=== PATIENT | male | born 1955 | race Caucasian/White ===

== ENCOUNTER 2016-08-27 14:59 | Emergency (ER) | payer OTHER ==
[2016-08-27] MEDS ORDERED: GELATIN SPONGE,ABSORB (SMALL) 1 EACH SPONGE TOPICAL STA (15:07)
[2016-08-27] MEDS ORDERED: ceFAZolin 1,000 MG VIAL IM STA (15:10)
[2016-08-27 15:11] VITALS: RESP 18; TEMP 97.8
--- NOTE | 2016-08-27 15:31 | XR ---
EXAMINATION TYPE: XR hand complete RT DATE OF EXAM: 08/27/2016 3:25 PM COMPARISON: NONE HISTORY: Pain laceration distal fifth digit TECHNIQUE: 3 views right hand FINDINGS: There is amputation of the soft tissues of the distal fifth digit. There is amputation of t he tuft of the distal phalanx. IMPRESSION: 1. Amputation of the distal tuft fifth digit and soft tissue distal fifth digit and
[2016-08-27] MEDS ORDERED: GELATIN SPONGE,ABSORB (LARGE) 1 EACH SPONGE TOPICAL ONE (15:45)
--- NOTE | 2016-08-27 15:54 | ED ---
General Adult HPI - General Stated complaint: left hand lac Time Seen by Provider: 08/27/16 15:01 Source: patient, RN notes reviewed, old records reviewed Mode of arrival: ambulatory Limitations: no limitations - History of Present Illness Initial comments: Patient is a 61 year old male with chief complaint of left fifth finger laceration after getting it caught between a kyle knife tool. Patient reports that the distal pad of his finger and part of the nail came off. PAtient is right handed. Patient reports he had a similiar injury over his right hand. Patient states that he has full range of motion over his finger. Denies any other lacerations. - Related Data Home Medications Medication Instructions Recorded Confirmed Meloxicam 15 mg PO DAILY 12/16/13 12/16/13 metFORMIN HCL [Glucophage] 500 mg PO BID 12/16/13 12/16/13 Previous Rx's Medication Instructions Recorded Cephalexin [Keflex] 500 mg PO Q8HR #30 cap 12/16/13 Hydrocodone/Acetaminophen [[place] 1 each PO Q4HR PRN #20 tab 12/16/13 5-325] Cephalexin [Keflex] 500 mg PO Q6HR 7 Days 08/27/16 HYDROcodone/APAP 10-325MG [[place] 1 tab PO Q6H PRN #20 tab 08/27/16 10-325] Allergies Allergy/AdvReac Type Severity Reaction Status Date / Time No Known Allergies Allergy Verified 08/27/16 15:11 Review of Systems ROS Statement: Those systems with pertinent positive or pertinent negative responses have been documented in the HPI. ROS Other: All systems not noted in ROS Statement are negative. Past Medical History Past Medical History: No Reported History History of Any Multi-Drug Resistant Organisms: None Reported Past Surgical History: Hernia Repair, Orthopedic Surgery Additional Past Surgical History / Comment(s): RIGHT FOOT SURGERY Past Psychological History: No Psychological Hx Reported Smoking Status: Former smoker Past Alcohol Use History: None Reported Past Drug Use History: None Reported General Exam - General Exam Comments Initial Comments: beryl 61 year old male, no distress. Limitations: no limitations General appearance: alert, in no apparent distress Head exam: Present: atraumatic, normocephalic, normal inspection Eye exam: Present: normal appearance, PERRL, EOMI. Absent: scleral icterus, conjunctival injection, periorbital swelling ENT exam: Present: normal exam, mucous membranes moist Neck exam: Present: normal inspection. Absent: tenderness, meningismus, lymphadenopathy Respiratory exam: Present: normal lung sounds bilaterally. Absent: respiratory distress, wheezes, rales, rhonchi, stridor Cardiovascular Exam: Present: regular rate, normal rhythm, normal heart sounds. Absent: systolic murmur, diastolic murmur, rubs, gallop, clicks GI/Abdominal exam: Present: soft, normal bowel sounds. Absent: distended, tenderness, guarding, rebound, rigid Extremities exam: Present: normal inspection, full ROM, normal capillary refill , other (amputated distal fifth finger pad. Extending into half of the nail. ). Absent: tenderness, pedal edema, joint swelling, calf tenderness Back exam: Present: normal inspection Neurological exam: Present: alert, oriented X3, CN II-XII intact Psychiatric exam: Present: normal affect, normal mood Course Vital Signs 08/27/16 08/27/16 15:00 16:06 Temperature 97.8 F Pulse Rate 88 79 Respiratory 18 18 Rate Blood Pressure 200/86 176/77 O2 Sat by Pulse 96 97 Oximetry Medical Decision Making - Medical Decision Making 61 year old male with distal lleft fifth finger amputation involving nail. Patient updated on tetanus and given Kefzol IM. Patient shows open distal tuft fracture. Patient hand was soaked in soapy water and wound cleaned. Patient given 2 pieces of gel foam over distal tip of finger and was wrapped with finger tube gauze. Patient bleeding controlled at this time. Patient given referral to orthopedic hand surgeon instructed to call at once. Discussed taking antibiotics and not to remove dressing until seen by orthopedic. Patient agrees with treatment plan and will comply. - Radiology Data Radiology results: report reviewed Tuft fracture of distal 5th finger and evidence of soft tissue missing. Disposition Clinical Impression: Traumatic amputation of tip of finger of right hand, Open fracture of tuft of distal phalanx of finger Disposition: HOME SELF-CARE Condition: Good Instructions: Finger Amputation (ED) Additional Instructions: Follow-up as soon as possible with Dr. Kevin. Remain in the gauze until seen by the physician. Take antibiotics as directed. Return to the emergency department if any alarming signs or symptoms occur. Prescriptions: Cephalexin [Keflex] 500 mg PO Q6HR 7 Days HYDROcodone/APAP 10-325MG [[place] 10-325] 1 tab PO Q6H PRN #20 tab PRN Reason: Pain Referrals: Philippe Connell DO [Primary Care Provider] - 1-2 days Kirill Kevin DO [Doctor of Osteopathic Medicine] - 1-2 days Time of Disposition: 15:51
[2016-08-27 16:07] VITALS: BP 176/77; PULSE 79
== END 2016-08-27 16:07 | disposition home or self-care (01) ==
LOC: EC 14:59
DX: S68.117A Complete traumatic metacarpophalangeal amputation of left little finger, initial encounter (principal); Z79.1 Long term (current) use of non-steroidal anti-inflammatories (NSAID); Z79.84 Long term (current) use of oral hypoglycemic drugs; Z87.891 Personal history of nicotine dependence; W23.0XXA Caught, crushed, jammed, or pinched between moving objects, initial encounter; Y92.009 Unspecified place in unspecified non-institutional (private) residence as the place of occurrence of the external cause
CPT/HCPCS: 99283 ×2; 96372 ×2; 73130; J0690

== ENCOUNTER → 2016-08-31 | Outpatient (CLI) | payer OTHER | LOC: LABWHC1 10:56 | PROVIDERS: ATTEND Orthopaedic Surgery Hand Surgery | DX: Z47.89 Encounter for other orthopedic aftercare (principal); Z89.029 Acquired absence of unspecified finger(s) | CPT/HCPCS: 36415; 93005 ==

== ENCOUNTER → 2017-11-19 | Outpatient (CLI) | payer OTHER ==
--- NOTE | 2017-11-19 15:50 | CT ---
EXAMINATION TYPE: CT chest wo con DATE OF EXAM: 11/19/2017 COMPARISON: HISTORY: Patient complains of chest pain and difficulty breathing. CT DLP: 466.8 mGycm. Automated Exposure Control for Dose Reduction was Utilized. TECHNIQUE: CT scan of the thorax is performed without IV contrast. FINDINGS: There is some atelectatic change in the right middle lobe. There is an 8.3 mm bulla the in the posterior basal segment of the right lower lobe. There is a somewhat oblong, 4.4 mm nodule in the left lingula, best seen on image 30. The lungs otherwise appear clear. There is no significant axillary, internal mammary, mediastinal or hilar adenopathy. There is no pleu ral or pericardial fluid. The heart is not enlarged. There is some coronary artery calcification. Visualized portions of the upper abdomen are unremarkable. There is minimal hypertrophic spondylosis within the dorsal spine. IMPRESSION: 1. 4.4 MM NODULE IN THE LEFT LINGULA. LUNG RADS 2. FOLLOW-UP IN 12 MONTHS TIME IS SUGGESTED. 2. SOLITARY BULLA IN THE RIGHT LOWER LOBE. 3. MILD DEGENERATIVE CHANGES WITHIN THE SPINE.
== END | disposition home or self-care (01) ==
LOC: RADCTMAIN 15:14
PROVIDERS: ATTEND Internal Medicine Critical Care Medicine
DX: J43.0 Unilateral pulmonary emphysema [MacLeod's syndrome] (principal); R91.1 Solitary pulmonary nodule
CPT/HCPCS: 71250

== ENCOUNTER 2017-12-02 10:28 | Emergency (ER) | payer OTHER ==
--- NOTE | 2017-12-02 12:03 | ED ---
General Adult HPI - General Chief complaint: Skin/Abscess/Foreign Body Stated complaint: Right Finger Abcess Time Seen by Provider: 12/02/17 10:45 Source: patient, RN notes reviewed, old records reviewed Mode of arrival: ambulatory Limitations: no limitations - History of Present Illness Initial comments: This is a 63-year-old male the ER for evaluation. They presents for evaluation regards to right fingers left finger abscess. Patient states he has been placed on antibiotics. No improvement pain actually symptoms are worsening swelling is worsening. No known injury. No diabetes. - Related Data Home Medications Medication Instructions Recorded Confirmed Meloxicam 15 mg PO DAILY 12/16/13 12/02/17 metFORMIN HCL [Glucophage] 500 mg PO BID 12/16/13 12/02/17 Albuterol Inhaler [Ventolin Hfa 2 puff INHALATION RT-Q6H PRN 12/02/17 12/02/17 Inhaler] Albuterol Nebulized [Ventolin 2.5 mg INHALATION RT-Q6H 12/02/17 12/02/17 Nebulized] Atorvastatin [Lipitor] 10 mg PO HS 12/02/17 12/02/17 Budesonide [Pulmicort] 0.5 mg INHALATION RT-BID 12/02/17 12/02/17 Budesonide-Formot 160-4.5 Mcg 2 puff INHALATION RT-BID 12/02/17 12/02/17 [Symbicort 160-4.5 Mcg Inhaler] Fluticasone Propionate [Flonase 1 spray EA NOSTRIL DAILY 12/02/17 12/02/17 Allergy Relief] Formoterol Fumarate [Perforomist] 20 mcg INHALATION RT-BID 12/02/17 12/02/17 Sulfamethox-Tmp 800-160Mg [Bactrim 1 tab PO Q12HR 12/02/17 12/02/17 DS 800-160 mg] Tiotropium [place] [Spiriva] 1 cap INHALATION RT-DAILY 12/02/17 12/02/17 Previous Rx's Medication Instructions Recorded Sulfamethox-Tmp 800-160Mg [Bactrim 1 tab PO Q12HR #20 tab 12/02/17 DS 800-160 mg] Allergies Allergy/AdvReac Type Severity Reaction Status Date / Time No Known Allergies Allergy Verified 12/02/17 11:04 Review of Systems ROS Statement: Those systems with pertinent positive or pertinent negative responses have been documented in the HPI. ROS Other: All systems not noted in ROS Statement are negative. Past Medical History Past Medical History: Diabetes Mellitus, Hypertension History of Any Multi-Drug Resistant Organisms: None Reported Past Surgical History: Hernia Repair, Orthopedic Surgery Additional Past Surgical History / Comment(s): RIGHT FOOT SURGERY Past Psychological History: No Psychological Hx Reported Smoking Status: Former smoker Past Alcohol Use History: None Reported Past Drug Use History: None Reported General Exam - General Exam Comments Initial Comments: Abscess to right finger Limitations: no limitations General appearance: alert, in no apparent distress Head exam: Present: atraumatic, normocephalic, normal inspection Eye exam: Present: normal appearance, PERRL, EOMI. Absent: scleral icterus, conjunctival injection, periorbital swelling ENT exam: Present: normal exam, mucous membranes moist Neck exam: Present: normal inspection. Absent: tenderness, meningismus, lymphadenopathy Respiratory exam: Present: normal lung sounds bilaterally. Absent: respiratory distress, wheezes, rales, rhonchi, stridor Cardiovascular Exam: Present: regular rate, normal rhythm, normal heart sounds. Absent: systolic murmur, diastolic murmur, rubs, gallop, clicks GI/Abdominal exam: Present: soft, normal bowel sounds. Absent: distended, tenderness, guarding, rebound, rigid Extremities exam: Present: normal inspection, full ROM, normal capillary refill. Absent: tenderness, pedal edema, joint swelling, calf tenderness Back exam: Present: normal inspection Neurological exam: Present: alert, oriented X3, CN II-XII intact Psychiatric exam: Present: normal affect, normal mood Skin exam: Present: warm, dry, intact, normal color. Absent: rash Course Vital Signs 12/02/17 12/02/17 10:34 12:15 Temperature 98.2 F 98.7 F Pulse Rate 83 77 Respiratory 18 16 Rate Blood Pressure 182/3 140/75 O2 Sat by Pulse 94 L 95 Oximetry Procedures - Incision & Drainage Consent Obtained: verbal consent Time Out Performed?: Yes Site: hand Anesthetic Used: lidocaine 1% I&D Cleaning Method: Betadine Sterile Field Used?: Yes Scalpel Used: #11 Needle Aspiration Performed?: No Irrigation Performed?: No I&D Drainage Obtained: Pus, Blood Culture Obtained?: No Patient Tolerated Procedure: well Medical Decision Making - Medical Decision Making 62 male the ER for evaluation of abscesses abscess on his right finger. Abscess is incised here in the ER mild purulent drainage was obtained and patient can be discharged home Disposition Clinical Impression: Abscess of finger Disposition: HOME SELF-CARE Condition: Good Instructions: Abscess (ED) Prescriptions: Sulfamethox-Tmp 800-160Mg [Bactrim DS 800-160 mg] 1 tab PO Q12HR #20 tab Is patient prescribed a controlled substance at d/c from ED?: No Referrals: Philippe Connell DO [Primary Care Provider] - 1-2 days
[2017-12-02 12:15] VITALS: BP 140/75; PULSE 77; RESP 16; TEMP 98.7
== END 2017-12-02 13:04 | disposition home or self-care (01) ==
LOC: EC 10:28
DX: L02.511 Cutaneous abscess of right hand (principal); E11.9 Type 2 diabetes mellitus without complications; Z79.84 Long term (current) use of oral hypoglycemic drugs; Z79.51 Long term (current) use of inhaled steroids; Z79.899 Other long term (current) drug therapy; Z87.891 Personal history of nicotine dependence
CPT/HCPCS: 10060; 99283

== ENCOUNTER → 2017-12-02 | Outpatient (CLI) | payer OTHER ==
--- NOTE | 2017-12-02 10:57 | EST ---
EXERCISE STRESS DATE OF SERVICE: 12/02/2017 AGE: 62 SEX: Male HT: 65 WT: 197 PROTOCOL: MICHELLE STAGE: II DURATION OF EXERCISE: 6 minutes HEART RATE REST: 69 BLOOD PRESSURE REST: 145/68 MAXIMUM HEART RATE ACHIEVED: 123 MAXIMUM BLOOD PRESSURE: 239/95 85% MPHR: 134 100% MPHR: 198 METS: 7 INDICATIONS: Chest pain. CLINICAL INFORMATION: Baseline EKG shows sinus rhythm, normal axis, normal intervals. Patient exercised on Michelle protocol for a total of 6 minutes achieving 7 METs, 78% of predicted maximal heart rate without chest pain. The patient had uncontrolled hypertension due to which the test was stopped. There were T-wave inversions in the inferolateral leads at peak exercise. CONCLUSIONS: 1. Average exercise tolerance. 2. Inconclusive EKG part of the stress test due to inability to attain target heart rate. 3. Uncontrolled hypertension. MMODL / IJN: [id number] /
--- NOTE | 2017-12-02 11:06 | ECHOF ---
Referral Reason: MEASUREMENTS -------- HEIGHT: 165.1 cm WEIGHT: 89.4 kg BP: RVIDd: 3.4 cm (< 3.3) IVSd: 1.4 cm (0.6 - 1.1) LVIDd: 4.2 cm (3.9 - 5.3) LVPWd: 1.6 cm (0.6 - 1.1) IVSs: 2.2 cm LVIDs: 2.4 cm LVPWs: 1.8 cm Ao Diam: 3.3 cm (2.0 - 3.7) AV Cusp: 2.1 cm (1.5 - 2.6) LA Diam: 3.7 cm (2.7 - 3.8) MV EXCURSION: 13.189 mm (> 18.000) MV EF SLOPE: 52 mm/s (70 - 150) EPSS: 0.7 cm MV E Roc: 0.69 m/s MV DecT: 255 ms MV A Roc: 0.80 m/s MV E/A Ratio: 0.87 AR PHT: 550 ms RAP: 5.00 mmHg RVSP: 36.85 mmHg FINDINGS -------- Sinus rhythm. This was a technically good study. The left ventricular size is normal. There is moderate concentric left ventricular hypertrophy. O verall left ventricular systolic function is normal with, an EF between 55 - 60 %. False Tendon Vis ualized in the LV The right ventricle is mildly enlarged. The left atrial size is normal. The right atrium is normal in size. There is mild aortic regurgitation. The mitral valve leaflets are mildly thickened. There is trace mitral regurgitation. Trace tricuspid regurgitation present. The right ventricular systolic pressure, as measured by Dopp ler, is 36.85mmHg. Pulmonic valve appears structurally normal. The aortic root size is normal. Normal inferior vena cava with normal inspiratory collapse consistent with estimated right atrial pre ssure of 5 mmHg. The pericardium is normal. CONCLUSIONS -------- 1. Sinus rhythm. 2. This was a technically good study. 3. The left ventricular size is normal. 4. There is moderate concentric left ventricular hypertrophy. 5. Overall left ventricular systolic function is normal with, an EF between 55 - 60 %. 6. False Tendon Visualized in the LV 7. The right ventricle is mildly enlarged. 8. The left atrial size is normal. 9. The right atrium is normal in size. 10. There is mild aortic regurgitation. 11. The mitral valve leaflets are mildly thickened. 12. There is trace mitral regurgitation. 13. Trace tricuspid regurgitation present. 14. The right ventricular systolic pressure, as measured by Doppler, is 36.85mmHg. 15. Pulmonic valve appears structurally normal. 16. The aortic root size is normal. 17. Normal inferior vena cava with normal inspiratory collapse consistent with estimated right atrial pressure of 5 mmHg. 18. The pericardium is normal. DIRECTOR OF HOME ECONOMICS: Sulema Sexton RDCS
== END | disposition home or self-care (01) ==
LOC: RADECHMAIN 07:59
PROVIDERS: ATTEND Family Medicine
DX: I10 Essential (primary) hypertension (principal); I08.0 Rheumatic disorders of both mitral and aortic valves
CPT/HCPCS: 93017; 93306

== ENCOUNTER 2018-01-06 02:43 | Emergency (ER) | payer OTHER ==
[2018-01-06] MEDS ORDERED: predniSONE 20 MG TAB PO STA (03:18)
[2018-01-06] MEDS ORDERED: IPRATROPIUM-ALBUTEROL 3 ML NEB INHALATION STA (03:18)
[2018-01-06 03:32] LABS: Basophils # (A) 0.1 k/uL (0-0.2); Basophils % (A) 1 %; Eosinophils # (A) 1.3 k/uL (0-0.7); Eosinophils % (A) 12 %; HCT 44.3 % (39.0-53.0); HGB 14.1 gm/dL (13.0-17.5); Lymphocytes # (A) 2.8 k/uL (1.0-4.8); Lymphocytes % (A) 25 %; MCH 32.6 pg (25.0-35.0); MCHC 31.9 g/dL (31.0-37.0); MCV 102.3 fL (80.0-100.0); Macrocytosis Slight; Mean Platelet Volume 7.2; Monocytes # (A) 0.8 k/uL (0-1.0); Monocytes % (A) 7 %; Neutrophils # (A) 5.9 k/uL (1.3-7.7); Neutrophils % (A) 53 %; Platelet Count 248 k/uL (150-450); RBC 4.33 m/uL (4.30-5.90); RDW 13.6 % (11.5-15.5); WBC 11.1 k/uL (3.8-10.6)
[2018-01-06 03:44] LABS: ALT 33 U/L (21-72); AST 26 U/L (17-59); Albumin 3.9 g/dL (3.5-5.0); Alkaline Phosphatase 72 U/L (38-126); Anion Gap 7 mmol/L; Blood Urea Nitrogen 16 mg/dL (9-20); Calcium 9.3 mg/dL (8.4-10.2); Carbon Dioxide 25 mmol/L (22-30); Chloride 108 mmol/L (98-107); Creatine Kinase 26 U/L (55-170); Glucose 97 mg/dL (74-99); Potassium 4.2 mmol/L (3.5-5.1); Sodium 140 mmol/L (137-145); Total Bilirubin 0.4 mg/dL (0.2-1.3); Total Protein 6.7 g/dL (6.3-8.2)
--- NOTE | 2018-01-06 03:53 | XR ---
EXAMINATION TYPE: XR chest 2V DATE OF EXAM: 01/06/2018 COMPARISON: 11/12/2017 HISTORY: COPD. Difficulty breathing TECHNIQUE: Frontal and lateral views of the chest are obtained. FINDINGS: Heart and mediastinum are normal. Lungs are clear. Diaphragm is normal. There are chest le ads. Bony thorax is intact. IMPRESSION: No active cardiopulmonary disease. Normal heart. No change.
[2018-01-06 03:58] LABS: Creatine Kinase MB 0.7 ng/mL (0.0-2.4); Troponin I <0.012 ng/mL (0.000-0.034)
[2018-01-06 04:11] LABS: INR 0.9 (<1.2); Partial Thromboplastin Time 22.6 sec (22.0-30.0); Prothrombin Time 9.4 sec (9.0-12.0)
[2018-01-06 04:19] LABS: D-Dimer 0.68 mg/L FEU (<0.60)
[2018-01-06 04:35] VITALS: RESP 18
[2018-01-06] MEDS ORDERED: ALBUTEROL NEBULIZED 2.5 MG/3 ML INHALATION STA (04:39)
--- NOTE | 2018-01-06 04:42 | ED ---
SOB HPI - General Chief Complaint: Shortness of Breath Stated Complaint: YONATAN Time Seen by Provider: 01/06/18 02:52 Source: patient, family Mode of arrival: wheelchair Limitations: no limitations - History of Present Illness Initial Comments: This patient is a 62-year-old man with history of COPD, who presents with complaint that his symptoms are not seeming to be relieved by his home medication. The patient states that he sees Dr. Melendez, and that the medical regimen does not seem to be helping now. He does continue to use the medications as directed. He is also having a cough but no sputum production. He feels that he needs to cough something up but is not able to. The patient denies chest pain, fevers or chills, upper respiratory symptoms, change in urination or bowel movements, leg pain or swelling. MD Complaint: shortness of breath, cough Onset/Timin -: days(s) Consistency: constant Improves With: nothing Worsens With: nothing Known History Of: COPD Associated Symptoms: denies other symptoms Treatments Prior to Arrival: bronchodilator - Related Data Home Oxygen Therapy: No Home Medications Medication Instructions Recorded Confirmed Meloxicam 15 mg PO DAILY 12/16/13 12/02/17 metFORMIN HCL [Glucophage] 500 mg PO BID 12/16/13 12/02/17 Albuterol Inhaler [Ventolin Hfa 2 puff INHALATION RT-Q6H PRN 12/02/17 12/02/17 Inhaler] Albuterol Nebulized [Ventolin 2.5 mg INHALATION RT-Q6H 12/02/17 12/02/17 Nebulized] Atorvastatin [Lipitor] 10 mg PO HS 12/02/17 12/02/17 Budesonide [Pulmicort] 0.5 mg INHALATION RT-BID 12/02/17 12/02/17 Budesonide-Formot 160-4.5 Mcg 2 puff INHALATION RT-BID 12/02/17 12/02/17 [Symbicort 160-4.5 Mcg Inhaler] Fluticasone Propionate [Flonase 1 spray EA NOSTRIL DAILY 12/02/17 12/02/17 Allergy Relief] Formoterol Fumarate [Perforomist] 20 mcg INHALATION RT-BID 12/02/17 12/02/17 Sulfamethox-Tmp 800-160Mg [Bactrim 1 tab PO Q12HR 12/02/17 12/02/17 DS 800-160 mg] Tiotropium [place] [Spiriva] 1 cap INHALATION RT-DAILY 12/02/17 12/02/17 Previous Rx's Medication Instructions Recorded Sulfamethox-Tmp 800-160Mg [Bactrim 1 tab PO Q12HR #20 tab 12/02/17 DS 800-160 mg] predniSONE 60 mg PO DAILY #30 tab 01/06/18 Allergies Allergy/AdvReac Type Severity Reaction Status Date / Time Sulfa (Sulfonamide Allergy Rash/Hives Verified 01/06/18 02:49 Antibiotics) Review of Systems ROS Statement: Those systems with pertinent positive or pertinent negative responses have been documented in the HPI. ROS Other: All systems not noted in ROS Statement are negative. Constitutional: Denies: fever, chills, weakness Respiratory: Reports: cough, dyspnea, wheezes. Denies: hemoptysis Cardiovascular: Denies: chest pain, palpitations, orthopnea, edema, syncope Gastrointestinal: Denies: abdominal pain, nausea, vomiting, melena, hematochezia Musculoskeletal: Denies: back pain Skin: Denies: rash Neurological: Denies: headache, weakness, numbness Past Medical History Past Medical History: COPD, Diabetes Mellitus, Hypertension History of Any Multi-Drug Resistant Organisms: None Reported Past Surgical History: Hernia Repair, Orthopedic Surgery Additional Past Surgical History / Comment(s): RIGHT FOOT SURGERY Past Psychological History: No Psychological Hx Reported Smoking Status: Former smoker Past Alcohol Use History: None Reported Past Drug Use History: None Reported General Exam Limitations: no limitations General appearance: alert, in no apparent distress Head exam: Present: atraumatic, normocephalic Eye exam: Present: normal appearance Respiratory exam: Present: wheezes, decreased breath sounds. Absent: respiratory distress, rales, rhonchi, stridor, chest wall tenderness, accessory muscle use, prolonged expiratory Cardiovascular Exam: Present: regular rate, normal rhythm, normal heart sounds. Absent: systolic murmur, diastolic murmur, rubs, gallop GI/Abdominal exam: Present: soft. Absent: distended, tenderness, guarding, rebound Extremities exam: Present: normal inspection, normal capillary refill. Absent: pedal edema, calf tenderness Back exam: Present: normal inspection. Absent: CVA tenderness (R), CVA tenderness (L) Neurological exam: Present: alert Skin exam: Present: warm, dry, intact, normal color. Absent: rash Course Vital Signs 01/06/18 01/06/18 01/06/18 02:46 03:09 03:23 Temperature 98.4 F Pulse Rate 82 70 Respiratory 22 20 Rate Blood Pressure 174/78 O2 Sat by Pulse 94 L Oximetry 01/06/18 01/06/18 01/06/18 03:32 04:34 04:42 Temperature Pulse Rate 68 66 66 Respiratory 18 Rate Blood Pressure 158/77 O2 Sat by Pulse 98 Oximetry 01/06/18 01/06/18 04:55 05:22 Temperature 97.7 F Pulse Rate 68 80 Respiratory 18 Rate Blood Pressure 168/78 O2 Sat by Pulse 96 Oximetry Medical Decision Making - Medical Decision Making Patient's 62-year-old man presenting with exacerbation of his COPD symptoms. He is given 2 nebulized treatments and steroids here and is feeling much better and does wish to go home. I did discuss admission for further treatment and also to have telemetry monitoring, but patient declines this. He does state that he had recent stress test with cardiology and will follow-up with them regarding his EKG. Also going to follow with Dr. Melendez. I discussed with patient he is to return here should any of the symptoms recur or should he develop any new or cardiac related symptoms. We discussed return parameters and follow-up and all questions answered.. - Lab Data Result diagrams: 01/06/18 03:05 01/06/18 03:05 Lab Results 01/06/18 01/06/18 01/06/18 Range/Units 03:05 03:05 03:05 WBC 11.1 H (3.8-10.6) k/uL RBC 4.33 (4.30-5.90) m/uL Hgb 14.1 (13.0-17.5) gm/dL Hct 44.3 (39.0-53.0) % MCV 102.3 H (80.0-100.0) fL MCH 32.6 (25.0-35.0) pg MCHC 31.9 (31.0-37.0) g/dL RDW 13.6 (11.5-15.5) % Plt Count 248 (150-450) k/uL Neutrophils % 53 % Lymphocytes % 25 % Monocytes % 7 % Eosinophils % 12 % Basophils % 1 % Neutrophils # 5.9 (1.3-7.7) k/uL Lymphocytes # 2.8 (1.0-4.8) k/uL Monocytes # 0.8 (0-1.0) k/uL Eosinophils # 1.3 H (0-0.7) k/uL Basophils # 0.1 (0-0.2) k/uL Macrocytosis Slight PT (9.0-12.0) sec INR (<1.2) APTT (22.0-30.0) sec D-Dimer (<0.60) mg/L FEU Sodium 140 (137-145) mmol/L Potassium 4.2 (3.5-5.1) mmol/L Chloride 108 H (98-107) mmol/L Carbon Dioxide 25 (22-30) mmol/L Anion Gap 7 mmol/L BUN 16 (9-20) mg/dL Creatinine 0.60 L (0.66-1.25) mg/dL Est GFR (CKD-EPI)AfAm >90 (>60 ml/min/1.73 sqM) Est GFR (CKD-EPI)NonAf >90 (>60 ml/min/1.73 sqM) Glucose 97 (74-99) mg/dL Calcium 9.3 (8.4-10.2) mg/dL Total Bilirubin 0.4 (0.2-1.3) mg/dL AST 26 (17-59) U/L ALT 33 (21-72) U/L Alkaline Phosphatase 72 (38-126) U/L Total Creatine Kinase 26 L (55-170) U/L CK-MB (CK-2) 0.7 (0.0-2.4) ng/mL CK-MB (CK-2) Rel Index 2.7 Troponin I <0.012 (0.000-0.034) ng/mL NT-Pro-B Natriuret Pep pg/mL Total Protein 6.7 (6.3-8.2) g/dL Albumin 3.9 (3.5-5.0) g/dL 01/06/18 01/06/18 Range/Units 03:05 03:05 WBC (3.8-10.6) k/uL RBC (4.30-5.90) m/uL Hgb (13.0-17.5) gm/dL Hct (39.0-53.0) % MCV (80.0-100.0) fL MCH (25.0-35.0) pg MCHC (31.0-37.0) g/dL RDW (11.5-15.5) % Plt Count (150-450) k/uL Neutrophils % % Lymphocytes % % Monocytes % % Eosinophils % % Basophils % % Neutrophils # (1.3-7.7) k/uL Lymphocytes # (1.0-4.8) k/uL Monocytes # (0-1.0) k/uL Eosinophils # (0-0.7) k/uL Basophils # (0-0.2) k/uL Macrocytosis PT 9.4 (9.0-12.0) sec INR 0.9 (<1.2) APTT 22.6 (22.0-30.0) sec D-Dimer 0.68 H (<0.60) mg/L FEU Sodium (137-145) mmol/L Potassium (3.5-5.1) mmol/L Chloride (98-107) mmol/L Carbon Dioxide (22-30) mmol/L Anion Gap mmol/L BUN (9-20) mg/dL Creatinine (0.66-1.25) mg/dL Est GFR (CKD-EPI)AfAm (>60 ml/min/1.73 sqM) Est GFR (CKD-EPI)NonAf (>60 ml/min/1.73 sqM) Glucose (74-99) mg/dL Calcium (8.4-10.2) mg/dL Total Bilirubin (0.2-1.3) mg/dL AST (17-59) U/L ALT (21-72) U/L Alkaline Phosphatase (38-126) U/L Total Creatine Kinase (55-170) U/L CK-MB (CK-2) (0.0-2.4) ng/mL CK-MB (CK-2) Rel Index Troponin I (0.000-0.034) ng/mL NT-Pro-B Natriuret Pep 54 pg/mL Total Protein (6.3-8.2) g/dL Albumin (3.5-5.0) g/dL Disposition Clinical Impression: COPD exacerbation Disposition: HOME SELF-CARE Condition: Fair Instructions: COPD (Chronic Obstructive Pulmonary Disease) (DC) Prescriptions: predniSONE 60 mg PO DAILY #30 tab Is patient prescribed a controlled substance at d/c from ED?: No Referrals: Philippe Connell DO [Primary Care Provider] - 1-2 days Anam Melendez MD [STAFF PHYSICIAN] - 1-2 days
[2018-01-06 05:23] VITALS: BP 168/78; PULSE 80; TEMP 97.7
== END 2018-01-06 05:22 | disposition home or self-care (01) ==
LOC: EC 02:43
DX: J44.1 Chronic obstructive pulmonary disease with (acute) exacerbation (principal); E11.9 Type 2 diabetes mellitus without complications; Z87.891 Personal history of nicotine dependence; Z79.51 Long term (current) use of inhaled steroids; Z79.84 Long term (current) use of oral hypoglycemic drugs; Z79.899 Other long term (current) drug therapy; Z88.2 Allergy status to sulfonamides
CPT/HCPCS: 36415; 71046; 80053; 82550; 82553; 83880; 84484; 85025; 85379; 85610; 85730; 93005; 94640; 99285

== ENCOUNTER → 2018-01-07 | Outpatient (CLI) | payer OTHER ==
[2018-01-07 18:36] LABS: Alternaria alternata IgE <0.10 kU/L; Birch IgE <0.10 kU/L; Cat Epith & Dander IgE <0.10 kU/L; Clam IgE <0.10 kU/L; Cockroach IgE <0.10 kU/L; Codfish IgE <0.10 kU/L; Dermato. farinae IgE <0.10 kU/L; Dog Dander IgE <0.10 kU/L; Egg White IgE <0.10 kU/L; Elm IgE <0.10 kU/L; Maple (Box Elder) IgE <0.10 kU/L; Oak IgE <0.10 kU/L; Peanut IgE <0.10 kU/L; Ragweed,Common IgE <0.10 kU/L; Red Top (Bentgrass) IgE <0.10 kU/L; Scallop IgE <0.10 kU/L; Shrimp IgE <0.10 kU/L; Soybean IgE <0.10 kU/L; Walnut IgE (Food) <0.10 kU/L
== END | disposition home or self-care (01) ==
LOC: LABWHC1 09:04
PROVIDERS: ATTEND Internal Medicine Critical Care Medicine
DX: J44.1 Chronic obstructive pulmonary disease with (acute) exacerbation (principal); R05 Cough; R06.02 Shortness of breath
CPT/HCPCS: 36415; 82785; 86003

== ENCOUNTER 2018-03-09 06:00 | Day surgery (SDC) | payer OTHER ==
[2018-03-03 09:07] VITALS: BMI 33.9
[~2018-03-09 06:00] MED LIST: HEPARIN SODIUM,PORCINE 5,000 UNIT/ML 1 ML VIAL SQ ONE; ceFAZolin IN SWFI 2 GM/20 ML SYRINGE IVP ONE
[2018-03-09] MEDS ORDERED: SCOPOLAMINE 1.5MG/72HR PATCH TRANSDERM ONE (06:05)
[2018-03-09] MEDS ORDERED: DEXAMETHASONE SOD PHOSPHATE 10 MG/ML 1 ML VIAL IV ONE (06:05)
[2018-03-09] MEDS ORDERED: ONDANSETRON 4 MG/2 ML VIAL IVP ONE (06:05)
[2018-03-09] MEDS ORDERED: LACTATED RINGERS 1,000 ML IV SCH (06:15)
[2018-03-09] MEDS ORDERED: LIDOCAINE 1% 20 ML VIAL (10MG/ML) FOR IV START INTRADERMA ONE (06:43)
[2018-03-09 06:44] LABS: Glucose,Whole Blood 89 mg/dL (75-99)
[2018-03-09] MEDS ORDERED: HYDROCORTISONE SUCCINATE 100 MG/2 ML VIAL IV ONE (07:02)
[2018-03-09] MEDS ORDERED: MIDAZOLAM 2 MG/2 ML VIAL IV ONE (07:09)
--- NOTE | 2018-03-09 08:01 | P.GSHP ---
History of Present Illness H&P Date: 03/09/18 Chief Complaint: Umbilical hernia This is a 63-year-old male who presents today for laparoscopic robotic-assisted repair of umbilical hernia. Patient developed a tender lump at his umbilicus. He was seen Bishnu found have a reducible umbilical hernia. Past Medical History Past Medical History: COPD, Diabetes Mellitus, Hyperlipidemia, Osteoarthritis ( OA) History of Any Multi-Drug Resistant Organisms: None Reported Past Surgical History: Hernia Repair, Orthopedic Surgery Additional Past Surgical History / Comment(s): RIGHT FOOT SURGERY. Past Anesthesia/Blood Transfusion Reactions: No Reported Reaction Past Psychological History: No Psychological Hx Reported Smoking Status: Former smoker Past Alcohol Use History: None Reported Additional Past Alcohol Use History / Comment(s): Quit smoking 10-12 yrs ago, smoked 30 yrs, 1 1/2 PPD. Past Drug Use History: None Reported - Past Family History Mother Family Medical History: No Reported History Medications and Allergies Home Medications Medication Instructions Recorded Confirmed Type Meloxicam 15 mg PO DAILY 12/16/13 03/09/18 History metFORMIN HCL [Glucophage] 500 mg PO BID 12/16/13 03/09/18 History Albuterol Inhaler [Ventolin Hfa 2 puff INHALATION RT-Q6H PRN 12/02/17 03/09/18 History Inhaler] Albuterol Nebulized [Ventolin 2.5 mg INHALATION RT-Q6H 12/02/17 03/09/18 History Nebulized] Atorvastatin [Lipitor] 10 mg PO HS 12/02/17 03/09/18 History Budesonide [Pulmicort] 0.5 mg INHALATION RT-BID 12/02/17 03/09/18 History Budesonide-Formot 160-4.5 Mcg 2 puff INHALATION RT-BID 12/02/17 03/09/18 History [Symbicort 160-4.5 Mcg Inhaler] Fluticasone Propionate [Flonase 1 spray EA NOSTRIL DAILY 12/02/17 03/09/18 History Allergy Relief] Formoterol Fumarate [Perforomist] 20 mcg INHALATION RT-BID 12/02/17 03/09/18 History Tiotropium Mcfaddin [Spiriva] 1 cap INHALATION RT-DAILY 12/02/17 03/09/18 History predniSONE 5 mg PO QAM 10/25/18 10/31/18 History Allergies Allergy/AdvReac Type Severity Reaction Status Date / Time Sulfa (Sulfonamide Allergy Rash/Hives Verified 03/09/18 06:24 Antibiotics) Surgical - Exam Vital Signs Temp Pulse Resp BP Pulse Ox 97.2 F L 75 16 160/80 96 03/09/18 06:23 03/09/18 06:23 03/09/18 06:23 03/09/18 06:23 03/09/18 06:23 - General well developed, no distress - Eyes PERRL - ENT normal pinna - Neck no masses - Respiratory normal expansion - Cardiovascular Rhythm: regular - Abdomen 3 cm umbilical hernia Abdomen: soft, non tender Assessment and Plan Assessment: Umbilical hernia. We will perform laparoscopic robotic-assisted repair.
[2018-03-09] MEDS ORDERED: PROPOFOL 10 MG/ML 20 ML VIAL IV ONE (08:07)
[2018-03-09] MEDS ORDERED: LIDOCAINE 1% INJ 10MG/ML (20 ML MDV) ONE (08:07)
[2018-03-09] MEDS ORDERED: GLYCOPYRROLATE 0.2 MG/ML 2 ML VIAL ONE (08:07)
[2018-03-09] MEDS ORDERED: MIDAZOLAM 2 MG/2 ML VIAL ONE (08:07)
[2018-03-09] MEDS ORDERED: fentaNYL (PF) 50 MCG/ML 2 ML AMP ONE (08:07)
[2018-03-09] MEDS ORDERED: HYDROmorphone (PF) 1 MG/ML ONE (08:07)
[2018-03-09] MEDS ORDERED: ROPIVACAINE 5 MG/ML 30 ML VIAL ONE (08:07)
[2018-03-09] MEDS ORDERED: ROCURONIUM BROMIDE 10 MG/ML 10 ML VIAL IV ONE (08:07)
[2018-03-09] MEDS ORDERED: NEOSTIGMINE 1 MG/ML 10 ML VIAL ONE (08:07)
[2018-03-09] MEDS ORDERED: KETOROLAC 30 MG/ML 1 ML VIAL ONE (08:07)
[2018-03-09] MEDS ORDERED: PHENYLEPHRINE-0.9% NACL SYG 1 MG/10 ML SYRINGE ONE (08:07)
[2018-03-09] MEDS ORDERED: BUPIVACAIN-EPI 0.25%-1:200,000 30 ML VIAL SQ ONE (08:45)
[2018-03-09] MEDS: HYDROmorphone 1 MG/ML 1 ML SYRINGE IVP PRN ×4 (09:45→10:01)
[2018-03-09 09:49] VITALS: TEMP 97.9
[2018-03-09] MEDS ORDERED: LABETALOL 5 MG/ML VIAL MDV IVP ONE (10:05)
--- NOTE | 2018-03-09 10:06 | P.ONQ ---
Anesthesiology Proc Note - PNB - Peripheral Nerve Block Performed Bilateral Other (see comment) Single Time Out Performed: Yes (Bilateral Rectus Sheath BLock ) Procedure Start Time: 07:10 Procedure Stop Time: 07:15 Indication: Acute Post-Operative Pain, Dx/Pain Location, Requested by physician Sedation Type: Sedate with meaningful contact maintained Preparation: Sterile Dressing Position: Supine Catheter: None Needle Types: Touhy Needle Size: 50mm (2") Needle Gauge: 20 Technique: Ultrasound Injectate: 0.5% Ropivacaine (see comment for volume)
[2018-03-09] MEDS ORDERED: IV FLUID CONTINUATION 1,000 ML IV ONE (10:51)
[2018-03-09 11:06] VITALS: RESP 16
[2018-03-09] MEDS ORDERED: HYDROcodone/APAP 7.5-325MG 1 EACH TAB PO ONE ×2 (12:28→17:50)
--- NOTE | 2018-03-09 12:50 | P.OP ---
Date of Procedure: 03/09/18 Preoperative Diagnosis: Umbilical hernia Postoperative Diagnosis: Umbilical hernia Procedure(s) Performed: Laparoscopic robotic-assisted repair of umbilical hernia Anesthesia: MARLENE Surgeon: Elliot Martines Estimated Blood Loss (ml): 5 Pathology: other (Incarcerated fat) Condition: stable Disposition: PACU Description of Procedure: The patient was placed on the operating table in the supine position. He received general anesthesia. His abdomen was prepped and draped usual fashion. Using a 5 mm optical trocar under direct visualization the peritoneal cavity was entered in the left upper quadrant. The abdomen was then insufflated. The laparoscope was placed back into the perineal cavity. Next a 8 mm robotic trocar was placed in the left lower quadrant and a 12 mm robotic trocar was placed in the left lateral position. The original 5 mm trocar was exchanged for a 8 mm robotic trocar. The patient's placed in the left side up position. And the patient was undocked the robot. The umbilical hernia was visualized. Using hook cautery the peritoneum over the umbilical hernia was excised. The incarcerated fat was dissected and transected. The fascial opening was repaired using 0V LOC suture. Next a piece of 11 cm round ventral light ST mesh was placed into the. Cavity and secured with 2 OV lock suture. The patient was undocked the robot. The needles were retrieved. The incarcerated fat was retrieved. The fascia of the 12 mm trocar site was closed with 0 Ethibond suture. Skin was closed interrupted 3-0 Monocryl suture. Dermabond dressings was applied. Patient top procedure well and was sent to recovery room stable condition.
[2018-03-09] MEDS ORDERED: ALBUTEROL NEBULIZED 2.5 MG/3 ML INHALATION STA (13:32)
[2018-03-09] MEDS ORDERED: LACTATED RINGERS 1,000 ML IV ONE (14:25)
[2018-03-09 14:54] VITALS: BP 167/78; PULSE 75
== END 2018-03-09 18:35 | disposition home or self-care (01) ==
LOC: OR 06:00
PROVIDERS: ATTEND Surgery
DX: K42.9 Umbilical hernia without obstruction or gangrene (principal); J44.9 Chronic obstructive pulmonary disease, unspecified; E11.9 Type 2 diabetes mellitus without complications; E78.5 Hyperlipidemia, unspecified; M19.90 Unspecified osteoarthritis, unspecified site; Z79.84 Long term (current) use of oral hypoglycemic drugs; Z79.1 Long term (current) use of non-steroidal anti-inflammatories (NSAID); Z79.51 Long term (current) use of inhaled steroids; Z79.52 Long term (current) use of systemic steroids; Z79.899 Other long term (current) drug therapy; Z88.2 Allergy status to sulfonamides; Z87.891 Personal history of nicotine dependence
CPT/HCPCS: 49653; 94640; 64488; 88302; C1781; J2250; J2710; J1720; J2405; J2001; J3010; J1885; J1170; J2795; J2370; J2704; J0690; 64486

== ENCOUNTER → 2018-07-22 | Outpatient (CLI) | payer OTHER | END | disposition home or self-care (01) | LOC: LABWHC1 10:34 | PROVIDERS: ATTEND Internal Medicine Critical Care Medicine | DX: J44.9 Chronic obstructive pulmonary disease, unspecified (principal) | CPT/HCPCS: 36415; 85008 ==

== ENCOUNTER 2018-09-27 08:47 | Observation (INO) | payer OTHER ==
[2018-09-27] MEDS ORDERED: methylPREDNISolone SOD SUCCI 125 MG/2 ML VIAL IV STA (09:00)
[2018-09-27] MEDS ORDERED: IPRATROPIUM-ALBUTEROL 3 ML NEB INHALATION STA (09:00)
[2018-09-27] MEDS ORDERED: ALBUTEROL NEBULIZED 2.5 MG/3 ML INHALATION STA (09:00)
[2018-09-27] MEDS ORDERED: SODIUM CHLORIDE 0.9% 1,000 ML IV STA ×2 (09:00)
--- NOTE | 2018-09-27 09:06 | ED ---
General Adult HPI <Stephon Patton - Last Filed: 09/27/18 10:25> - General Source: patient, RN notes reviewed, old records reviewed Mode of arrival: ambulatory <Radha Hairston - Last Filed: 09/27/18 10:29> - General Chief complaint: Shortness of Breath Stated complaint: SOB Time Seen by Provider: 09/27/18 08:51 - History of Present Illness Initial comments: Patient is a 63-year-old male who presents emergency department today for evaluation with complaints of difficulty breathing worsening over the past 3-4 days. Patient has extensive history of COPD. He has been on chronic steroids, and has been off of them for the past 11 days. Patient follows with Dr. Melendez for pulmonology. They report that his cough has been worsening in production, and Dr. Melendez called in azithromycin for the Patient to start yesterday. He's had one dose of the antibiotic. Patient reports that he took a couple breathing treatments before arriving, prior to doing so he was having a difficult time walking short distances due to significant shortness of breath. Patient states that he has a yellow productive sputum. A former smoker and quit 10 years ago. He denies any fevers or chills. Patient denies any recent fever, chills,chest pain, back pain, abdominal pain, nausea vomiting, numbness or tingling, dysuria or hematuria, constipation or diarrhea, headaches or visual changes, or any other current symptoms (Radha Guzman) - Related Data Home Medications Medication Instructions Recorded Confirmed Meloxicam 15 mg PO DAILY 12/16/13 09/27/18 metFORMIN HCL [Glucophage] 500 mg PO BID 12/16/13 09/27/18 Albuterol Inhaler [Ventolin Hfa 2 puff INHALATION RT-Q4H PRN 12/02/17 09/27/18 Inhaler] Albuterol Nebulized [Ventolin 2.5 mg INHALATION RT-Q4H 12/02/17 09/27/18 Nebulized] Atorvastatin [Lipitor] 10 mg PO HS 12/02/17 09/27/18 Budesonide [Pulmicort] 0.5 mg INHALATION RT-BID 12/02/17 09/27/18 Fluticasone Propionate [Flonase 1 spray EA NOSTRIL DAILY 12/02/17 09/27/18 Allergy Relief] Formoterol Fumarate [Perforomist] 20 mcg INHALATION RT-BID 12/02/17 09/27/18 Tiotropium Pompey [Spiriva] 1 cap INHALATION RT-DAILY 12/02/17 09/27/18 Azithromycin [Zithromax] 500 mg PO DAILY 09/27/18 09/27/18 Cetirizine HCl [Zyrtec] 10 mg PO DAILY 09/27/18 09/27/18 EPINEPHrine [Epipen 2-Shahzad] 0.3 mg IM ONCE PRN 09/27/18 09/27/18 Loratadine [Claritin] 10 mg PO DAILY PRN 09/27/18 09/27/18 Losartan Potassium 50 mg PO DAILY 09/27/18 09/27/18 Theophylline 12 Hour [Martin-Dur] 200 mg PO Q12HR 09/27/18 09/27/18 Allergies Allergy/AdvReac Type Severity Reaction Status Date / Time Sulfa (Sulfonamide Allergy Rash/Hives Verified 09/27/18 09:32 Antibiotics) Review of Systems ROS Other: All systems not noted in ROS Statement are negative. <Stephon Patton - Last Filed: 09/27/18 10:25> ROS Other: All systems not noted in ROS Statement are negative. <Radha Hairston - Last Filed: 09/27/18 10:29> ROS Statement: Those systems with pertinent positive or pertinent negative responses have been documented in the HPI. Past Medical History Past Medical History: COPD, Diabetes Mellitus, Hyperlipidemia, Osteoarthritis (OA) History of Any Multi-Drug Resistant Organisms: None Reported Past Surgical History: Hernia Repair, Orthopedic Surgery Additional Past Surgical History / Comment(s): RIGHT FOOT SURGERY. Past Anesthesia/Blood Transfusion Reactions: No Reported Reaction Past Psychological History: No Psychological Hx Reported Smoking Status: Former smoker Past Alcohol Use History: None Reported Past Drug Use History: None Reported - Past Family History Mother Family Medical History: No Reported History <Radha Hairston - Last Filed: 09/27/18 10:29> General Exam General appearance: alert, in no apparent distress Head exam: Present: atraumatic, normocephalic, normal inspection Eye exam: Present: normal appearance, PERRL, EOMI. Absent: scleral icterus, conjunctival injection, periorbital swelling ENT exam: Present: normal exam, mucous membranes moist Neck exam: Present: normal inspection Respiratory exam: Present: wheezes (Diffuse expiratory wheezing noted.), rhonchi (Rhonchi in the left lower lung field.). Absent: normal lung sounds bilaterally, respiratory distress, rales, stridor Cardiovascular Exam: Present: regular rate, normal rhythm, normal heart sounds. Absent: systolic murmur, diastolic murmur, rubs, gallop, clicks Extremities exam: Present: normal inspection, full ROM, normal capillary refill. Absent: tenderness, pedal edema, joint swelling, calf tenderness Back exam: Present: normal inspection Neurological exam: Present: alert, oriented X3, CN II-XII intact Psychiatric exam: Present: normal affect, normal mood <Radha Hairston - Last Filed: 09/27/18 10:29> - General Exam Comments Initial Comments: 63-year-old male. Alert and oriented. No significant distress at this time. Temperature 97.8. Pulse 66. Respirations 16 breaths per minute. Pulse ox is low 94% (Radha Hairston) Course <Stephon Patton - Last Filed: 09/27/18 10:25> Vital Signs 09/27/18 09/27/18 09/27/18 08:49 09:59 10:15 Temperature 97.8 F Pulse Rate 66 73 82 Respiratory 26 H Rate O2 Sat by Pulse 94 L Oximetry - Reevaluation(s) Reevaluation #1: 09/27/18 10:25 Case was discussed with practitioner Marika. Case was also discussed with Dr. Connell, who will admit his patient with consult for Dr. Melissa Hernandez in. (Stephon Patton) EKG Findings - EKG Comments: EKG Findings:: EKG performed at 944 shows normal sinus rhythm. Normal EKG. Ventricular rate of 75 bpm period. Intervals 146 most seconds. QRS duration 102 ms. QT QTc is 392/437 ms. <Radha Hairston - Last Filed: 09/27/18 10:29> Medical Decision Making - Lab Data Result diagrams: 09/27/18 09:18 09/27/18 09:18 <Stephon Patton - Last Filed: 09/27/18 10:25> - Lab Data Result diagrams: 09/27/18 09:18 09/27/18 09:18 - Radiology Data Radiology results: report reviewed <Radha Hairston - Last Filed: 09/27/18 10:29> - Medical Decision Making Patient is a 63-year-old male who presents the emergency department today for evaluation of difficulty breathing, CBC exacerbation. Wheezing noted on exam. He's been off steroids for the past 12 days. He does follow Dr. Melendez. After 2 breathing treatments he continued to wheeze. Blood work was reviewed and unremarkable. EKG is normal. Chest x-ray shows evidence of COPD exacerbation. This time Patient admitted for COPD exacerbation with consult to Dr. Melendez. All questions answered. (Radha Hairston) - Lab Data Lab Results 09/27/18 09/27/18 09/27/18 Range/Units 09:18 09:18 09:18 WBC 6.1 (3.8-10.6) k/uL RBC 4.42 (4.30-5.90) m/uL Hgb 14.1 (13.0-17.5) gm/dL Hct 43.1 (39.0-53.0) % MCV 97.5 (80.0-100.0) fL MCH 31.9 (25.0-35.0) pg MCHC 32.7 (31.0-37.0) g/dL RDW 13.9 (11.5-15.5) % Plt Count 277 (150-450) k/uL Neutrophils % 45 % Lymphocytes % 25 % Monocytes % 7 % Eosinophils % 18 % Basophils % 1 % Neutrophils # 2.8 (1.3-7.7) k/uL Lymphocytes # 1.5 (1.0-4.8) k/uL Monocytes # 0.4 (0-1.0) k/uL Eosinophils # 1.1 H (0-0.7) k/uL Basophils # 0.1 (0-0.2) k/uL PT 9.7 (9.0-12.0) sec INR 0.9 (<1.2) APTT 23.5 (22.0-30.0) sec Sodium 141 (137-145) mmol/L Potassium 4.2 (3.5-5.1) mmol/L Chloride 108 H (98-107) mmol/L Carbon Dioxide 27 (22-30) mmol/L Anion Gap 6 mmol/L BUN 9 (9-20) mg/dL Creatinine 0.68 (0.66-1.25) mg/dL Est GFR (CKD-EPI)AfAm >90 (>60 ml/min/1.73 sqM) Est GFR (CKD-EPI)NonAf >90 (>60 ml/min/1.73 sqM) Glucose 98 (74-99) mg/dL Calcium 9.5 (8.4-10.2) mg/dL Magnesium 1.7 (1.6-2.3) mg/dL Total Bilirubin 0.6 (0.2-1.3) mg/dL AST 25 (17-59) U/L ALT 29 (21-72) U/L Alkaline Phosphatase 64 (38-126) U/L Total Protein 6.8 (6.3-8.2) g/dL Albumin 4.3 (3.5-5.0) g/dL - Radiology Data Chest x-rays negative for any acute cardio pulmonary processes, underlying COPD is noted. (Radha Hairston) Critical Care Time Critical Care Time: Yes Total Critical Care Time: 30 <Radha Hairston - Last Filed: 09/27/18 10:29> Disposition <Stephon Patton - Last Filed: 09/27/18 10:25> Is patient prescribed a controlled substance at d/c from ED?: No Time of Disposition: 10:29 <Radha Hairston - Last Filed: 09/27/18 10:29> Clinical Impression: COPD exacerbation Disposition: ADMITTED IP TO THIS HOSP Condition: Stable Referrals: Philippe Connell DO [Primary Care Provider] - 1-2 days
--- NOTE | 2018-09-27 09:34 | XR ---
EXAMINATION TYPE: XR chest 2V DATE OF EXAM: 09/27/2018 COMPARISON: 01/06/2018 HISTORY: Shortness of breath and cough TECHNIQUE: Frontal and lateral views of the chest are obtained. FINDINGS: There is no focal air space opacity, pleural effusion, or pneumothorax seen. Pulmonary hy perinflation and flattening the diaphragms on the lateral view relates to underlying COPD. The cardia c silhouette size is within normal limits. The osseous structures are intact. IMPRESSION: No acute cardiopulmonary process. Underlying COPD.
[2018-09-27 09:56] LABS: ALT 29 U/L (21-72); AST 25 U/L (17-59); Albumin 4.3 g/dL (3.5-5.0); Alkaline Phosphatase 64 U/L (38-126); Anion Gap 6 mmol/L; Blood Urea Nitrogen 9 mg/dL (9-20); Calcium 9.5 mg/dL (8.4-10.2); Carbon Dioxide 27 mmol/L (22-30); Chloride 108 mmol/L (98-107); Glucose 98 mg/dL (74-99); Magnesium 1.7 mg/dL (1.6-2.3); Potassium 4.2 mmol/L (3.5-5.1); Sodium 141 mmol/L (137-145); Total Bilirubin 0.6 mg/dL (0.2-1.3); Total Protein 6.8 g/dL (6.3-8.2)
[2018-09-27 09:59] LABS: Basophils # (A) 0.1 k/uL (0-0.2); Basophils % (A) 1 %; Eosinophils # (A) 1.1 k/uL (0-0.7); Eosinophils % (A) 18 %; HCT 43.1 % (39.0-53.0); HGB 14.1 gm/dL (13.0-17.5); Lymphocytes # (A) 1.5 k/uL (1.0-4.8); Lymphocytes % (A) 25 %; MCH 31.9 pg (25.0-35.0); MCHC 32.7 g/dL (31.0-37.0); MCV 97.5 fL (80.0-100.0); Mean Platelet Volume 7.9; Monocytes # (A) 0.4 k/uL (0-1.0); Monocytes % (A) 7 %; Neutrophils # (A) 2.8 k/uL (1.3-7.7); Neutrophils % (A) 45 %; Platelet Count 277 k/uL (150-450); RBC 4.42 m/uL (4.30-5.90); RDW 13.9 % (11.5-15.5); WBC 6.1 k/uL (3.8-10.6)
[2018-09-27 10:15] LABS: INR 0.9 (<1.2); Partial Thromboplastin Time 23.5 sec (22.0-30.0); Prothrombin Time 9.7 sec (9.0-12.0)
[2018-09-27] MEDS ORDERED: IPRATROPIUM-ALBUTEROL 3 ML NEB INHALATION PRN ×2 (10:30→13:45)
[2018-09-27] MEDS: SODIUM CHLORIDE 0.9% 1,000 ML IV SCH ×2 (10:41→21:02)
[2018-09-27 11:07] VITALS: BMI 33.4
[2018-09-27 12:37] VITALS: RESP 20
[2018-09-27] MEDS: methylPREDNISolone SOD SUCCI 125 MG/2 ML VIAL IV SCH ×2 (13:07→18:04)
[2018-09-27 13:08] LABS: Glucose,Whole Blood 143 mg/dL (75-99)
[2018-09-27] MEDS: INSULIN ASPART (NovoLOG) 100 UNIT/ML VIAL SQ SCH ×3 (13:10→21:01)
--- NOTE | 2018-09-27 14:59 | P.CNPUL ---
History of Present Illness Consult date: 09/27/18 Reason for consult: dyspnea, cough, COPD Chief complaint: Dyspnea, cough, wheezing History of present illness: This is a 63-year-old white male patient of Dr. Connell with past medical history of moderate persistent bronchial asthma, and COPD, hypertension, diabetes mellitus, hyperlipidemia, osteoarthritis, and patient is an ex-smoker, carries a history of 30 years of smoking of 2 packs a day. Patient has eosinophilic asthma, and he has been on Xolair injections, his last injection was last week on . He states he recently returned from [place] on August 23, so he missed a few of his Xolair injections, which he is supposed to get every 2 weeks. His outpatient PFT showed FEV1 of 1.88 L or 64% of predicted, with forced vital capacity of 2.58 L or 66% of predicted with good response to bronchodilators. Patient is not on oxygen on a regular basis. On 09/27/[address] Melendez a message on patient portal, with symptoms of worsening shortness of breath, cough, with production of yellow sputum, and requested a prescription for antibiotics. Z-Shahzad was called in and patient started it last night. Patient was recently treated for exacerbation of COPD/asthma with outpatient course of Levaquin and prednisone taper, and he completed the prednisone taper 2 weeks ago. This morning he went to see his primary care physician Dr. Connell in the office, symptoms worsening, he could not sleep last night because of shortness of breath, wheezing, chest tightness, and patient was directed to the emergency department for further treatment. Chest x-ray showed no acute cardiopulmonary process, he did show underlying COPD. Vital signs are stable, room air pulse ox is 96%, hemodynamically patient is stable. Lab work showed white blood cell, 6.1, hemoglobin of 14.1, coagulation profile was within normal limits, sodium was 141, potassium is 4.2, chloride is 108, CO2 is 27, BUN was 9 creatinine is 0.68. Troponin was negative 1, proBNP was within normal limits at 61. Patient was started on IV steroids, oral Zithromax, breathing treatments, his Pulmicort and Perforomist were restarted, patient is on theophylline 400 mg at bedtime. He is feeling better, and he is requesting to go home either today or tomorrow. Review of Systems All systems: negative Constitutional: Denies chills, Denies fever Eyes: denies blurred vision, denies pain Ears, nose, mouth and throat: Denies headache, Denies sore throat Cardiovascular: Denies chest pain, Denies shortness of breath Respiratory: Reports congestion, Reports cough with sputum, Reports dyspnea, Reports respiratory infections, Reports wheezing, Denies cough Gastrointestinal: Denies abdominal pain, Denies diarrhea, Denies nausea, Denies vomiting Musculoskeletal: Denies myalgias Integumentary: Denies pruritus, Denies rash Neurological: Denies numbness, Denies weakness Psychiatric: Denies anxiety, Denies depression Endocrine: Denies fatigue, Denies weight change Past Medical History Past Medical History: Asthma, COPD, Hyperlipidemia, Hypertension, Osteoarthritis (OA), Pneumonia Additional Past Medical History / Comment(s): Pt/spouse state pt is not diabeti c-placed on RX for weight loss only, arthritis in multiple joints, allergic asthma, bronchitis, sinus issues. History of Any Multi-Drug Resistant Organisms: None Reported Past Surgical History: Hernia Repair, Orthopedic Surgery Additional Past Surgical History / Comment(s): Inguinal hernia repair (pt cannot recall laterallity), umbilical hernia repair with mesh, colonoscopies, R great toe surgery, R index finger I&D. Past Anesthesia/Blood Transfusion Reactions: No Reported Reaction Past Psychological History: No Psychological Hx Reported Additional Psychological History / Comment(s): Pt resides with his spouse. He is independent. He is retired. Smoking Status: Former smoker Past Alcohol Use History: None Reported Additional Past Alcohol Use History / Comment(s): Pt started smoking in 1978 and quit in 2008. He was a 1.5 ppd smoker. Past Drug Use History: None Reported - Past Family History Mother Family Medical History: No Reported History Additional Family Medical History / Comment(s): Mother in a house fire from smoke inhalation. Father Additional Family Medical History / Comment(s): Father in a house fire from smoke inhalation. Medications and Allergies Home Medications Medication Instructions Recorded Confirmed Type Meloxicam 15 mg PO DAILY 12/16/13 09/27/18 History metFORMIN HCL [Glucophage] 500 mg PO BID 12/16/13 09/27/18 History Albuterol Inhaler [Ventolin Hfa 2 puff INHALATION RT-Q4H PRN 12/02/17 09/27/18 History Inhaler] Albuterol Nebulized [Ventolin 2.5 mg INHALATION RT-Q4H 12/02/17 09/27/18 History Nebulized] Atorvastatin [Lipitor] 10 mg PO HS 12/02/17 09/27/18 History Budesonide [Pulmicort] 0.5 mg INHALATION RT-BID 12/02/17 09/27/18 History Fluticasone Propionate [Flonase 1 spray EA NOSTRIL DAILY 12/02/17 09/27/18 History Allergy Relief] Formoterol Fumarate [Perforomist] 20 mcg INHALATION RT-BID 12/02/17 09/27/18 History Tiotropium Chadron [Spiriva] 1 cap INHALATION RT-DAILY 12/02/17 09/27/18 History Azithromycin [Zithromax] 500 mg PO DAILY 09/27/18 09/27/18 History Cetirizine HCl [Zyrtec] 10 mg PO DAILY 09/27/18 09/27/18 History EPINEPHrine [Epipen 2-Shahzad] 0.3 mg IM ONCE PRN 09/27/18 09/27/18 History Loratadine [Claritin] 10 mg PO DAILY PRN 09/27/18 09/27/18 History Losartan Potassium 50 mg PO DAILY 09/27/18 09/27/18 History Theophylline 12 Hour [Martin-Dur] 200 mg PO Q12HR 09/27/18 09/27/18 History Allergies Allergy/AdvReac Type Severity Reaction Status Date / Time Sulfa (Sulfonamide Allergy Rash/Hives Verified 09/27/18 09:32 Antibiotics) Physical Exam Vitals: Vital Signs Temp Pulse Pulse Resp BP BP Pulse Ox 09/27/18 12:36 97.7 F 85 20 123/68 94 L 09/27/18 10:30 78 133/71 96 09/27/18 10:15 82 09/27/18 10:00 70 124/73 09/27/18 09:59 73 09/27/18 09:30 141/83 09/27/18 09:15 24 09/27/18 09:00 95 09/27/18 08:49 97.8 F 66 26 H 94 L Intake and Output 09/26/18 09/27/18 09/27/18 22:59 06:59 14:59 Other: # Voids 2 Weight 91.172 kg GENERAL EXAM: Alert, pleasant, 63-year-old white male comfortable in no apparent distress. HEAD: Normocephalic/atraumatic. EYES: Normal reaction of pupils, equal size. Conjunctiva pink, sclera white. NOSE: Clear with pink turbinates. THROAT: No erythema or exudates. NECK: No masses, no JVD, no thyroid enlargement, no adenopathy. CHEST: No chest wall deformity. Symmetrical expansion. LUNGS: Equal air entry with diffuse wheezes, and prolongation of the expiratory phase of breathing CVS: Regular rate and rhythm, normal S1 and S2, no gallops, no murmurs, no rubs ABDOMEN: Soft, nontender. No hepatosplenomegaly, normal bowel sounds, no guarding or rigidity. EXTREMITIES: No clubbing, no edema, no cyanosis, 2+ pulses and upper and lower extremities. MUSCULOSKELETAL: Muscle strength and tone normal. SPINE: No scoliosis or deformity SKIN: No rashes CENTRAL NERVOUS SYSTEM: Alert and oriented -3. No focal deficits, tone is normal in all 4 extremities. PSYCHIATRIC: Alert and oriented -3. Appropriate affect. Intact judgment and insight. Results - Laboratory Findings CBC and BMP: 09/27/18 09:18 09/27/18 09:18 PT/INR, D-dimer PT 9.7 sec (9.0-12.0) 09/27/18 09:18 INR 0.9 (<1.2) 09/27/18 09:18 Abnormal lab findings: Abnormal Labs 09/27/18 09/27/18 09/27/18 09:18 09:18 13:06 Eosinophils # 1.1 H Chloride 108 H POC Glucose (mg/dL) 143 H - Diagnostic Findings Chest x-ray: report reviewed, image reviewed Additional studies: EKG reviewed Assessment and Plan Plan: Assessment: #1. 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 #2. Eosinophilic asthma on Xolair injections on outpatient basis #3. Moderately severe COPD with a baseline FEV1 of 1.88 or 66% of predicted consistent with stage II COPD not oxygen dependent at baseline #4. Diabetes mellitus type 2 #5. Hyperlipidemia #6. Osteoarthritis #7. Nicotine dependence, in remission, patient carries 30 years of smoking history of 2 packs per day Plan: Continue current treatment, continue Zithromax, IV steroids, Pulmicort, Perforomist, DuoNeb nebulized treatments. Chest x-ray has been reviewed with Dr. Melendez, patient was seen and evaluated by Dr. Melendez. No focal infiltrates on the chest x-ray, no fever or chills. Patient already reports improvement, and his hoping to be able to go home possibly in the next 24 hours. We'll continue to follow I performed a history & physical examination of the patient and discussed their management with my nurse practitioner, Trisha Nicole. I reviewed the nurse practitioner's note and agree with the documented findings and plan of care. Lung sounds are positive for diffuse wheezes throughout the lung thorne. The findings and the impression was discussed with the patient. I attest to the documentation by the nurse practitioner. Time with Patient: Greater than 30
[2018-09-27] MEDS: IPRATROPIUM-ALBUTEROL 3 ML NEB INHALATION SCH ×2 (15:35→19:15)
[2018-09-27] MEDS: LOSARTAN 50 MG TAB PO SCH (16:41)
[2018-09-27] MEDS: MELOXICAM 7.5 MG TAB PO SCH (16:45)
[2018-09-27] MEDS: metFORMIN 500 MG TAB PO SCH ×2 (16:46→20:12)
[2018-09-27] MEDS: FLUTICASONE 50MCG/SPRAY NASAL 16GM EA NOSTRIL SCH (16:49)
[2018-09-27] MEDS: PROMETHAZ-COD 6.25-10 MG/5 ML 5 ML CUP PO PRN ×2 (16:49→22:21)
[2018-09-27 17:23] LABS: Glucose,Whole Blood 182 mg/dL (75-99)
[2018-09-27] MEDS: BENZONATATE 100 MG CAP PO SCH ×2 (17:57→22:17)
[2018-09-27] MEDS: BUDESONIDE 1 MG/2 ML NEBU INHALATION SCH (19:14)
[2018-09-27] MEDS: FORMOTEROL FUMARATE 20 MCG/2 ML NEBU INHALATION SCH (19:27)
[2018-09-27] MEDS ORDERED: BUDESONIDE 0.5 MG/2 ML NEBU INHALATION SCH (20:00)
[2018-09-27] MEDS: guaiFENesin 600 MG TABLET.ER PO SCH (20:12)
[2018-09-27 20:37] LABS: Glucose,Whole Blood 169 mg/dL (75-99)
[2018-09-27] MEDS ORDERED: ATORVASTATIN 10 MG TAB PO SCH (21:00)
[2018-09-27] MEDS ORDERED: THEOPHYLLINE 24 HOUR 400 MG CAP.ER.24H PO SCH (21:00)
[2018-09-27] MEDS ORDERED: LORATADINE 10 MG TAB PO SCH (21:00)
[2018-09-27] MEDS ORDERED: MELATONIN 5 MG TABLET PO SCH (21:45)
[2018-09-28] MEDS: methylPREDNISolone SOD SUCCI 125 MG/2 ML VIAL IV SCH ×3 (00:18→12:49)
[2018-09-28] MEDS: PROMETHAZ-COD 6.25-10 MG/5 ML 5 ML CUP PO PRN ×2 (04:51→13:06)
[2018-09-28 05:58] VITALS: TEMP 97.6
[2018-09-28] MEDS: SODIUM CHLORIDE 0.9% 1,000 ML IV SCH (06:08)
[2018-09-28] MEDS: FORMOTEROL FUMARATE 20 MCG/2 ML NEBU INHALATION SCH (07:05)
[2018-09-28] MEDS: IPRATROPIUM-ALBUTEROL 3 ML NEB INHALATION SCH ×3 (07:05→15:27)
[2018-09-28] MEDS: BUDESONIDE 1 MG/2 ML NEBU INHALATION SCH (07:05)
[2018-09-28 07:14] LABS: Glucose,Whole Blood 138 mg/dL (75-99)
[2018-09-28] MEDS: INSULIN ASPART (NovoLOG) 100 UNIT/ML VIAL SQ SCH ×2 (07:59→12:43)
[2018-09-28] MEDS: LOSARTAN 50 MG TAB PO SCH (08:01)
[2018-09-28] MEDS: guaiFENesin 600 MG TABLET.ER PO SCH (08:01)
[2018-09-28] MEDS: metFORMIN 500 MG TAB PO SCH (08:01)
[2018-09-28] MEDS: BENZONATATE 100 MG CAP PO SCH (08:02)
[2018-09-28] MEDS: MELOXICAM 7.5 MG TAB PO SCH (08:03)
[2018-09-28] MEDS: FLUTICASONE 50MCG/SPRAY NASAL 16GM EA NOSTRIL SCH (08:05)
[2018-09-28 08:08] LABS: Anion Gap 9 mmol/L; Blood Urea Nitrogen 10 mg/dL (9-20); Calcium 9.7 mg/dL (8.4-10.2); Carbon Dioxide 23 mmol/L (22-30); Chloride 109 mmol/L (98-107); Glucose 134 mg/dL (74-99); Potassium 4.4 mmol/L (3.5-5.1); Sodium 141 mmol/L (137-145)
[2018-09-28 08:35] LABS: Basophils % (A) 0 %; Eosinophils # (A) 0.1 k/uL (0-0.7); Eosinophils % (A) 2 %; HCT 41.9 % (39.0-53.0); HGB 13.2 gm/dL (13.0-17.5); Lymphocytes # (A) 1.3 k/uL (1.0-4.8); Lymphocytes % (A) 24 %; MCH 31.6 pg (25.0-35.0); MCHC 31.6 g/dL (31.0-37.0); MCV 100.1 fL (80.0-100.0); Mean Platelet Volume 11.1; Monocytes # (A) 0.2 k/uL (0-1.0); Monocytes % (A) 4 %; Neutrophils # (A) 3.4 k/uL (1.3-7.7); Neutrophils % (A) 66 %; RBC 4.19 m/uL (4.30-5.90); RDW 13.3 % (11.5-15.5); WBC 5.2 k/uL (3.8-10.6)
[2018-09-28] MEDS ORDERED: LORATADINE 10 MG TAB PO SCH (09:00)
[2018-09-28] MEDS ORDERED: AZITHROMYCIN 500 MG TAB PO SCH (09:00)
[2018-09-28 09:02] LABS: Platelet Count 247 k/uL (150-450)
[2018-09-28 10:59] LABS: Glucose,Whole Blood 120 mg/dL (75-99)
--- NOTE | 2018-09-28 11:26 | P.HPIM ---
History of Present Illness H&P Date: 09/28/18 Chief Complaint: Shortness of breath, difficulty breathing This is a 63-year-old gentleman who follows with Dr. Connell, with history of pulmonary fibrosis, COPD, former nicotine dependence 2 packs per day 30 years and multiple other medical issues. Nearly 2 weeks ago,patient completed antibiotic and prednisone taper for COPD and asthma exacerbation. Last received Xolair injection, but had missed a few Xolair injections as he had been in [place]. Shortness of breath worsened with productive Cough-yellow sputum, Z-Shahzad called in by Dr. Melendez a couple days ago. Began having worsening shortness of breath and presented to the ER. Reports yellow sputum, no fevers or chills. O2 sat on room air 94%, respiratory rate 26 on admission, chest x- ray reporting nonacute, underlying COPD, EKG reporting normal sinus rhythm. Afebrile, normal WBC. Troponins negative 1, BNP normal-61, coags normal, CO2 27 , chloride 108 , electrolytes normal ,VSS. Nebulized bronchodilators, IV steroids, home meds of Pulmicort, Perforomist, theophylline initiated. Review of Systems ROS Other: All systems not noted in ROS Statement are negative. ROS Statement: Those systems with pertinent positive or pertinent negative responses have been documented in the HPI. Past Medical History Past Medical History: Asthma, COPD, Hyperlipidemia, Hypertension, Osteoarthritis (OA), Pneumonia Additional Past Medical History / Comment(s): Pt/spouse state pt is not diabetic-placed on RX for weight loss only, arthritis in multiple joints, allergic asthma, bronchitis, sinus issues. History of Any Multi-Drug Resistant Organisms: None Reported Past Surgical History: Hernia Repair, Orthopedic Surgery Additional Past Surgical History / Comment(s): Inguinal hernia repair (pt cannot recall laterallity), umbilical hernia repair with mesh, colonoscopies, R great toe surgery, R index finger I&D. Past Anesthesia/Blood Transfusion Reactions: No Reported Reaction Past Psychological History: No Psychological Hx Reported Additional Psychological History / Comment(s): Pt resides with his spouse. He is independent. He is retired. Smoking Status: Former smoker Past Alcohol Use History: None Reported Additional Past Alcohol Use History / Comment(s): Pt started smoking in 1978 and quit in 2008. He was a 1.5 ppd smoker. Past Drug Use History: None Reported - Past Family History Mother Family Medical History: No Reported History Additional Family Medical History / Comment(s): Mother in a house fire from smoke inhalation. Father Additional Family Medical History / Comment(s): Father in a house fire from smoke inhalation. Medications and Allergies Home Medications Medication Instructions Recorded Confirmed Type Meloxicam 15 mg PO DAILY 12/16/13 09/27/18 History metFORMIN HCL [Glucophage] 500 mg PO BID 12/16/13 09/27/18 History Albuterol Inhaler [Ventolin Hfa 2 puff INHALATION RT-Q4H PRN 12/02/17 09/27/18 History Inhaler] Albuterol Nebulized [Ventolin 2.5 mg INHALATION RT-Q4H 12/02/17 09/27/18 History Nebulized] Atorvastatin [Lipitor] 10 mg PO HS 12/02/17 09/27/18 History Budesonide [Pulmicort] 0.5 mg INHALATION RT-BID 12/02/17 09/27/18 History Fluticasone Propionate [Flonase 1 spray EA NOSTRIL DAILY 12/02/17 09/27/18 History Allergy Relief] Formoterol Fumarate [Perforomist] 20 mcg INHALATION RT-BID 12/02/17 09/27/18 History Tiotropium [place] [Spiriva] 1 cap INHALATION RT-DAILY 12/02/17 09/27/18 History Azithromycin [Zithromax] 500 mg PO DAILY 09/27/18 09/27/18 History Cetirizine HCl [Zyrtec] 10 mg PO DAILY 09/27/18 09/27/18 History EPINEPHrine [Epipen 2-Shahzad] 0.3 mg IM ONCE PRN 09/27/18 09/27/18 History Loratadine [Claritin] 10 mg PO DAILY PRN 09/27/18 09/27/18 History Losartan Potassium 50 mg PO DAILY 09/27/18 09/27/18 History Theophylline 12 Hour [Martin-Dur] 200 mg PO Q12HR 09/27/18 09/27/18 History Allergies Allergy/AdvReac Type Severity Reaction Status Date / Time Sulfa (Sulfonamide Allergy Rash/Hives Verified 09/27/18 09:32 Antibiotics) Physical Exam Vitals: Vital Signs Temp Pulse Pulse Resp BP Pulse Ox 09/28/18 10:59 94 09/28/18 10:49 92 09/28/18 07:27 90 09/28/18 07:16 88 09/28/18 07:15 88 09/28/18 07:05 88 09/28/18 04:36 97.6 F 97 20 135/67 93 L 09/28/18 00:15 20 09/27/18 21:00 97.8 F 110 H 20 117/68 94 L 09/27/18 19:38 96 09/27/18 19:28 96 09/27/18 19:27 96 09/27/18 19:16 95 09/27/18 15:47 96 09/27/18 15:39 94 09/27/18 12:36 97.7 F 85 20 123/68 94 L Intake and Output 09/27/18 09/28/18 09/28/18 22:59 06:59 14:59 Other: Voiding Method Toilet Toilet # Voids 1 2 PHYSICAL EXAM: VITAL SIGNS: As above GENERAL: Sitting up in bed, no acute distress HEENT: Conjunctivae normal. eyes normal. Oral mucosa moist NECK: No JVD. No thyroid enlargement. No LNs CARDIOVASCULAR: S1, S2 muffled. No murmur RESPIRATION: Breath sounds diminished in the bases. No rhonchi or crackles. No bronchial breathing. Diffuse prolonged expiratory wheezing. ABDOMEN: Soft, nontender . No guarding. no masses palpable. Bowel sounds heard. LEGS: No edema. no swelling PSYCHIATRY: Alert and oriented -3, mood and affect normal. NERVOUS SYSTEM: Cranial N 2-12 grossly normal. Moves all 4 limbs. Diffuse weakness No focal deficits. No sensory deficit. Skin: no lesions, no rash Joints: No active swelling. No inflammation. Lymphatic system. No LN neck axilla or groin. Results CBC & Chem 7: 09/28/18 06:55 09/28/18 06:55 Labs: Abnormal Lab Results - Last 24 Hours (Table) 09/27/18 09/27/18 09/27/18 Range/Units 13:06 17:21 20:35 RBC (4.30-5.90) m/uL MCV (80.0-100.0) fL Chloride (98-107) mmol/L Glucose (74-99) mg/dL POC Glucose (mg/dL) 143 H 182 H 169 H (75-99) mg/dL 09/28/18 09/28/18 09/28/18 Range/Units 06:55 06:55 07:12 RBC 4.19 L (4.30-5.90) m/uL MCV 100.1 H (80.0-100.0) fL Chloride 109 H (98-107) mmol/L Glucose 134 H (74-99) mg/dL POC Glucose (mg/dL) 138 H (75-99) mg/dL 09/28/18 Range/Units 10:57 RBC (4.30-5.90) m/uL MCV (80.0-100.0) fL Chloride (98-107) mmol/L Glucose (74-99) mg/dL POC Glucose (mg/dL) 120 H (75-99) mg/dL Thrombosis Risk Factor Assmnt - Choose All That Apply Any of the Below Risk Factors Present?: Yes Each Factor Represents 1 point: Abnormal pulmonary function (COPD), Obesity (BMI >25) Other Risk Factors: Yes Each Risk Factor Represents 2 Points: Age 61-74 years Other congenital or acquired thrombophilia - If yes, enter type in comment: No Thrombosis Risk Factor Assessment Total Risk Factor Score: 4 Thrombosis Risk Factor Assessment Level: Moderate Risk Assessment and Plan Assessment: Acute COPD and moderate persistent asthma exacerbation, recently completed antibiotic regimen 2 weeks ago -Severe COPD -Diabetes mellitus II -Hyperlipidemia -Osteoarthritis -Osteoarthritis -History of nicotine dependence, 2pack per day X 30 yrs, quit 2008. Plan: Continue on current medication regime ,monitoring and symptomatic treatment. Maintain nebulized bronchodilators, Perforomist, Pulmicort, IV steroids, antibiotics. Home meds have been reviewed and resumed . GI and DVT prophylaxis in place. Increase ambulation as tolerated. Discharge planning in progress pending pulmonary clearance. The impression and plan of care has been dictated as directed. : I performed a history and examination of this patient, discussed the same with the dictator. I agree with the dictator's note ,documented as a scribe. Any additional findings or plans will be noted. Time taken: 35 minutes
[2018-09-28 12:10] VITALS: BP 128/59
--- NOTE | 2018-09-28 12:20 | P.DS ---
Providers Date of admission: 09/27/18 10:26 Expected date of discharge: 09/28/18 Attending physician: Philippe Connell Consults: 09/27/18 10:26 Consult Physician Urgent Consulting Provider: Anam Melendez Consult Reason/Comments: dyspnea Do you want consulting provider notified?: Yes Primary care physician: Philippe Connell Hospital Course: Final Diagnoses: Acute COPD and moderate persistent asthma exacerbation, recently completed antibiotic regimen 2 weeks ago -Severe COPD -Diabetes mellitus II -Hyperlipidemia -Osteoarthritis -History of nicotine dependence, 2pack per day X 30 yrs, quit 2008. Hospital course:This is a 63-year-old gentleman who follows with Dr. Connell, with history of pulmonary fibrosis, COPD, former nicotine dependence 2 packs per day 30 years and multiple other medical issues. Nearly 2 weeks ago,patient completed antibiotic and prednisone taper for COPD and asthma exacerbation. Last received Xolair injection, but had missed a few Xolair injections as he had been in [place]. Shortness of breath worsened with productive Cough-yellow sputum, Z-Shahzad called in by Dr. Melendez a couple days ago. Began having worsening shortness of breath and presented to the ER. Reports yellow sputum, no fevers or chills. O2 sat on room air 94%, respiratory rate 26 on admission, chest x-ray reporting nonacute, underlying COPD, EKG reporting normal sinus rhythm. Afebrile, normal WBC. Troponins negative 1, BNP normal-61, coags normal, CO2 27 , chloride 108 , electrolytes normal ,VSS. Nebulized bronchodilators, IV steroids, home meds of Pulmicort, Perforomist, theophylline initiated. Evaluated by pulmonary. Significant clinical improvement. Patient has been cleared by pulmonary for discharge on 4 more days of Zithromax, prednisone taper, and current cough syrup in addition to his home meds. Patient is being discharged home in a stable condition with guarded prognosis. EXAM: GENERAL: Alert and oriented 3, no acute distress CARDIOVASCULAR: S1, S2 muffled. No murmur RESPIRATION: Breath sounds diminished in the bases. No rhonchi or crackles. No bronchial breathing. Diffuse prolonged expiratory wheezing. ABDOMEN: Soft, nontender . No guarding. no masses palpable. Bowel sounds heard. NERVOUS SYSTEM: No focal deficits. The impression and plan of care has been dictated as directed. : I performed a history and examination of this patient, discussed the same with the dictator. I agree with the dictator's note ,documented as a scribe. Any additional findings or plans will be noted. Time taken: 35 minutes Patient Condition at Discharge: Stable Plan - Discharge Summary Discharge Rx Participant: No New Discharge Prescriptions: New Promethaz-Cod 6.25-10 mg/5 ml [Phenergan with Codeine] 5 ml PO Q6H PRN #60 ml PRN Reason: Cough predniSONE 10 mg PO DIRECTED #30 tab Continue metFORMIN HCL [Glucophage] 500 mg PO BID Meloxicam 15 mg PO DAILY Albuterol Inhaler [Ventolin Hfa Inhaler] 2 puff INHALATION RT-Q4H PRN PRN Reason: Shortness Of Breath Albuterol Nebulized [Ventolin Nebulized] 2.5 mg INHALATION RT-Q4H Atorvastatin [Lipitor] 10 mg PO HS Budesonide [Pulmicort] 0.5 mg INHALATION RT-BID Fluticasone Propionate [Flonase Allergy Relief] 1 spray EA NOSTRIL DAILY Formoterol Fumarate [Perforomist] 20 mcg INHALATION RT-BID Tiotropium [place] [Spiriva] 1 cap INHALATION RT-DAILY EPINEPHrine [Epipen 2-Shahzad] 0.3 mg IM ONCE PRN PRN Reason: Anaphylaxis Cetirizine HCl [Zyrtec] 10 mg PO DAILY Theophylline 12 Hour [Martin-Dur] 200 mg PO Q12HR Losartan Potassium 50 mg PO DAILY Loratadine [Claritin] 10 mg PO DAILY PRN PRN Reason: Allergy Symptoms Azithromycin [Zithromax] 500 mg PO DAILY #0 Discharge Medication List Meloxicam 15 mg PO DAILY 12/16/13 [History] metFORMIN HCL [Glucophage] 500 mg PO BID 12/16/13 [History] Albuterol Inhaler [Ventolin Hfa Inhaler] 2 puff INHALATION RT-Q4H PRN 12/02/17 [History] Albuterol Nebulized [Ventolin Nebulized] 2.5 mg INHALATION RT-Q4H 12/02/17 [History] Atorvastatin [Lipitor] 10 mg PO HS 12/02/17 [History] Budesonide [Pulmicort] 0.5 mg INHALATION RT-BID 12/02/17 [History] Fluticasone Propionate [Flonase Allergy Relief] 1 spray EA NOSTRIL DAILY 8 [History] Formoterol Fumarate [Perforomist] 20 mcg INHALATION RT-BID 12/02/17 [History] Tiotropium [place] [Spiriva] 1 cap INHALATION RT-DAILY 12/02/17 [History] Cetirizine HCl [Zyrtec] 10 mg PO DAILY 09/27/18 [History] EPINEPHrine [Epipen 2-Shahzad] 0.3 mg IM ONCE PRN 09/27/18 [History] Loratadine [Claritin] 10 mg PO DAILY PRN 09/27/18 [History] Losartan Potassium 50 mg PO DAILY 09/27/18 [History] Theophylline 12 Hour [Martin-Dur] 200 mg PO Q12HR 09/27/18 [History] Azithromycin [Zithromax] 500 mg PO DAILY #0 09/28/18 [Rx] Promethaz-Cod 6.25-10 mg/5 ml [Phenergan with Codeine] 5 ml PO Q6H PRN #60 ml 09/28/18 [Rx] predniSONE 10 mg PO DIRECTED #30 tab 09/28/18 [Rx] Follow up Appointment(s)/Referral(s): Philippe Connell DO [Primary Care Provider] - 3 Days Anam Melendez MD [Family Provider] - 2 Weeks Ambulatory/Diagnostic Orders: Complete Blood Count w/diff [LAB.AMB] Time Frame: 3 Days, Location: None Selected
--- NOTE | 2018-09-28 14:41 | P.PN ---
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 Connell with past medical history of moderate persistent bronchial asthma, and COPD, hypertension, diabetes mellitus, hyperlipidemia, osteoarthritis, and patient is an ex-smoker, carries a history of 30 years of smoking of 2 packs a day. Patient has eosinophilic asthma, and he has been on Xolair injections, his last injection was last week on . He states he recently returned from [place] on August 23, so he missed a few of his Xolair injections, which he is supposed to get every 2 weeks. His outpatient PFT showed FEV1 of 1.88 L or 64% of predicted, with forced vital capacity of 2.58 L or 66% of predicted with good response to bronch odilators. Patient is not on oxygen on a regular basis. On 09/27/[address] Melendez a message on patient portal, with symptoms of worsening shortness of breath, cough, with production of yellow sputum, and requested a prescription for antibiotics. Z-Shahzad was called in and patient started it last night. Patient was recently treated for exacerbation of COPD/asthma with outpatient course of Levaquin and prednisone taper, and he completed the prednisone taper 2 weeks ago. This morning he went to see his primary care physician Dr. Connell in the office, symptoms worsening, he could not sleep last night because of shortness of breath, wheezing, chest tightness, and patient was directed to the emergency department for further treatment. Chest x-ray showed no acute cardiopulmonary process, he did show underlying COPD. Vital signs are stable, room air pulse ox is 96%, hemodynamically patient is stable. Lab work showed white blood cell, 6.1, hemoglobin of 14.1, coagulation profile was within normal limits, sodium was 141, potassium is 4.2, chloride is 108, CO2 is 27, BUN was 9 creatinine is 0.68. Troponin was negative 1, proBNP was within normal limits at 61. Patient was started on IV steroids, oral Zithromax, breathing treatments, his Pulmicort and Perforomist were restarted, patient is on theophylline 400 mg at bedtime. He is feeling better, and he is requesting to go home either today or tomorrow. On 09/28/2018 patient seen in follow-up on medical surgical floor. He is awake and alert, in no acute distress, room air pulse ox is 93%, his breathing is improving, less wheezy and dyspneic. Afebrile. Blood culture showed no growth. Patient is treated with the IV Rocephin, nebulized bronchodilators, IV steroids, and he is improving. During ambulation, he is requesting to go home today. No acute events overnight. Objective - Vital Signs Vital signs: Vital Signs Temp 97.6 F 09/28/18 12:10 Pulse 91 09/28/18 12:10 Resp 20 09/28/18 12:10 BP 128/59 09/28/18 12:10 Pulse Ox 93 L 09/28/18 12:10 Intake & Output 09/27/18 09/28/18 09/28/18 18:59 06:59 18:59 Weight 91.172 kg Other: Voiding Method Toilet Toilet Toilet # Voids 2 2 - Exam GENERAL EXAM: Alert, pleasant, 63-year-old white male comfortable in no apparent distress. HEAD: Normocephalic/atraumatic. EYES: Normal reaction of pupils, equal size. Conjunctiva pink, sclera white. NOSE: Clear with pink turbinates. THROAT: No erythema or exudates. NECK: No masses, no JVD, no thyroid enlargement, no adenopathy. CHEST: No chest wall deformity. Symmetrical expansion. LUNGS: Equal air entry with a few scattered expiratory wheezes, and prolongation of the expiratory phase of breathing CVS: Regular rate and rhythm, normal S1 and S2, no gallops, no murmurs, no rubs ABDOMEN: Soft, nontender. No hepatosplenomegaly, normal bowel sounds, no guarding or rigidity. EXTREMITIES: No clubbing, no edema, no cyanosis, 2+ pulses and upper and lower extremities. MUSCULOSKELETAL: Muscle strength and tone normal. SPINE: No scoliosis or deformity SKIN: No rashes CENTRAL NERVOUS SYSTEM: Alert and oriented -3. No focal deficits, tone is normal in all 4 extremities. PSYCHIATRIC: Alert and oriented -3. Appropriate affect. Intact judgment and insight. - Labs CBC & Chem 7: 09/28/18 06:55 09/28/18 06:55 Labs: Abnormal Lab Results - Last 24 Hours (Table) 09/27/18 09/27/18 09/28/18 Range/Units 17:21 20:35 06:55 RBC 4.19 L (4.30-5.90) m/uL MCV 100.1 H (80.0-100.0) fL Chloride (98-107) mmol/L Glucose (74-99) mg/dL POC Glucose (mg/dL) 182 H 169 H (75-99) mg/dL 09/28/18 09/28/18 09/28/18 Range/Units 06:55 07:12 10:57 RBC (4.30-5.90) m/uL MCV (80.0-100.0) fL Chloride 109 H (98-107) mmol/L Glucose 134 H (74-99) mg/dL POC Glucose (mg/dL) 138 H 120 H (75-99) mg/dL Microbiology - Last 24 Hours (Table) 09/27/18 09:18 Blood Culture - Preliminary Blood No Growth after 24 hours Assessment and Plan Plan: Assessment: #1. 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 #2. Eosinophilic asthma on Xolair injections on outpatient basis #3. Moderately severe COPD with a baseline FEV1 of 1.88 or 66% of predicted consistent with stage II COPD not oxygen dependent at baseline #4. Diabetes mellitus type 2 #5. Hyperlipidemia #6. Osteoarthritis #7. Nicotine dependence, in remission, patient carries 30 years of smoking history of 2 packs per day Plan: Patient continues to improve, less dyspneic, less John spastic, he is requesting to go home today, no acute events overnight, maintaining good oxygenation on room air. From pulmonary perspective patient is stable for discharge home on the prednisone taper, he can finish outpatient course of Zithromax 500 mg daily for 4 more days, he can resume his outpatient inhalers and nebulized treatments, and he will see Dr. Melendez in follow-up. I performed a history & physical examination of the patient and discussed their management with my nurse practitioner, Trisha Nicole. I reviewed the nurse practitioner's note and agree with the documented findings and plan of care. Lung sounds are positive for diffuse wheezes throughout the lung thorne. The findings and the impression was discussed with the patient. I attest to the documentation by the nurse practitioner. Time with Patient: Less than 30
[2018-09-28 15:29] VITALS: PULSE 88
== END 2018-09-28 15:40 | disposition home or self-care (01) ==
LOC: EC 08:47 → 3NMEDONC 10:26
PROVIDERS: ADMIT Family Medicine; ATTEND Family Medicine
DX: J44.1 Chronic obstructive pulmonary disease with (acute) exacerbation (principal); J45.41 Moderate persistent asthma with (acute) exacerbation; T48.6X6A Underdosing of antiasthmatics, initial encounter; Z91.138 Patient's unintentional underdosing of medication regimen for other reason; J82 Pulmonary eosinophilia, not elsewhere classified; E66.9 Obesity, unspecified; Z68.33 Body mass index [BMI] 33.0-33.9, adult; E78.5 Hyperlipidemia, unspecified; M19.90 Unspecified osteoarthritis, unspecified site; J84.10 Pulmonary fibrosis, unspecified; E11.9 Type 2 diabetes mellitus without complications; F17.211 Nicotine dependence, cigarettes, in remission; Z79.51 Long term (current) use of inhaled steroids; Z79.1 Long term (current) use of non-steroidal anti-inflammatories (NSAID); Z79.84 Long term (current) use of oral hypoglycemic drugs; Z79.899 Other long term (current) drug therapy; Z88.2 Allergy status to sulfonamides; Z87.01 Personal history of pneumonia (recurrent)
CPT/HCPCS: 96376 ×2; 96361 ×3; 96374; 99291; 36415; 94640 ×4; 93005; 83880; 80053; 80048; 83735; 84484; 85025 ×2; 85610; 85730; 87040; 71046; G0378 ×2; J2930 ×2

== ENCOUNTER → 2018-10-01 | Outpatient (CLI) | payer OTHER ==
[2018-10-01 09:19] LABS: Basophils % (A) 0 %; Eosinophils # (A) 0.1 k/uL (0-0.7); Eosinophils % (A) 1 %; HCT 40.1 % (39.0-53.0); HGB 13.7 gm/dL (13.0-17.5); Lymphocytes # (A) 2.5 k/uL (1.0-4.8); Lymphocytes % (A) 26 %; MCH 32.7 pg (25.0-35.0); MCHC 34.1 g/dL (31.0-37.0); MCV 95.7 fL (80.0-100.0); Mean Platelet Volume 7.1; Monocytes # (A) 0.9 k/uL (0-1.0); Monocytes % (A) 10 %; Neutrophils # (A) 5.8 k/uL (1.3-7.7); Neutrophils % (A) 61 %; Platelet Count 300 k/uL (150-450); RBC 4.19 m/uL (4.30-5.90); RDW 13.4 % (11.5-15.5); WBC 9.4 k/uL (3.8-10.6)
[2018-10-01 16:12] LABS: Anion Gap 8.6 mmol/L (4.00-12.00); Calcium 9.6 mg/dL (8.7-10.3); Carbon Dioxide 27.4 mmol/L (21.6-31.8); Potassium 3.8 mmol/L (3.5-5.5)
== END | disposition home or self-care (01) ==
LOC: LABWHC1 08:51
PROVIDERS: ATTEND Nurse Practitioner
DX: J44.9 Chronic obstructive pulmonary disease, unspecified (principal); J45.901 Unspecified asthma with (acute) exacerbation
CPT/HCPCS: 36415; 80048; 85025

== ENCOUNTER → 2018-10-24 | Outpatient (CLI) | payer OTHER | END | disposition home or self-care (01) | LOC: LABWHC1 07:58 | PROVIDERS: ATTEND Internal Medicine Critical Care Medicine | DX: J44.9 Chronic obstructive pulmonary disease, unspecified (principal) | CPT/HCPCS: 36415; 85008 ==

== ENCOUNTER 2018-12-02 13:22 | Emergency (ER) | payer OTHER ==
[2018-12-02 13:43] VITALS: BP 138/76; PULSE 91; RESP 18; TEMP 97.8
[2018-12-02] MEDS ORDERED: DIPH,PERTUS(ACELL)TETVAC-LF 0.5 ML VIAL IM ONE (14:13)
[2018-12-02] MEDS ORDERED: LIDOCAINE 1% INJ 10MG/ML (20 ML MDV) SQ ONE (14:24)
--- NOTE | 2018-12-02 14:58 | XR ---
EXAMINATION TYPE: XR knee limited RT DATE OF EXAM: 12/02/2018 CLINICAL HISTORY: Right knee laceration. Rule out foreign body. TECHNIQUE: Three views of the right knee are obtained. COMPARISON: None. FINDINGS: There is no acute fracture/dislocation evident in right knee. The tri-compartment joint s paces are aligned but demonstrate small marginal osteophytes throughout with mild medial compartment joint space narrowing also seen. Focal soft tissue laceration is seen of the lateral right knee soft tissues extending to the fibula without osseous laceration or radiopaque foreign body. Overall there is mild localized subcutaneous emphysema.. IMPRESSION: There is no acute fracture or dislocation in the right knee. Lateral soft tissue lacerat ion of the right knee abutting the fibular cortex without osseous laceration or radiopaque foreign hue dy. Mild local subcutaneous emphysema.
--- NOTE | 2018-12-02 16:11 | ED ---
General Adult HPI - General Chief complaint: Wound/Laceration Stated complaint: rt leg lac Time Seen by Provider: 12/02/18 13:50 Source: patient Mode of arrival: ambulatory Limitations: no limitations - History of Present Illness Initial comments: Patient is 63-year-old male presents emergency Department with a laceration to his right leg. Patient reports cutting grass outside when he made a 4 cm laceration along the lateral aspect of the right lower leg. Patient reports mild bleeding at the site of injury. Patient denies any foreign bodies going into the laceration site. Patient is unaware of his tetanus status. Patient reports full range of motion and denies any numbness or tingling. Patient reports the pain is a 4 and throbbing. Patient denies taking any [id number] medication to alleviate the symptoms. Patient is not on blood thinners. - Related Data Home Medications Medication Instructions Recorded Confirmed Meloxicam 15 mg PO DAILY 12/16/13 09/27/18 metFORMIN HCL [Glucophage] 500 mg PO BID 12/16/13 09/27/18 Albuterol Inhaler [Ventolin Hfa 2 puff INHALATION RT-Q4H PRN 12/02/17 09/27/18 Inhaler] Albuterol Nebulized [Ventolin 2.5 mg INHALATION RT-Q4H 12/02/17 09/27/18 Nebulized] Atorvastatin [Lipitor] 10 mg PO HS 12/02/17 09/27/18 Budesonide [Pulmicort] 0.5 mg INHALATION RT-BID 12/02/17 09/27/18 Fluticasone Propionate [Flonase 1 spray EA NOSTRIL DAILY 12/02/17 09/27/18 Allergy Relief] Formoterol Fumarate [Perforomist] 20 mcg INHALATION RT-BID 12/02/17 09/27/18 Tiotropium [place] [Spiriva] 1 cap INHALATION RT-DAILY 12/02/17 09/27/18 Cetirizine HCl [Zyrtec] 10 mg PO DAILY 09/27/18 09/27/18 EPINEPHrine [Epipen 2-Shahzad] 0.3 mg IM ONCE PRN 09/27/18 09/27/18 Loratadine [Claritin] 10 mg PO DAILY PRN 09/27/18 09/27/18 Losartan Potassium 50 mg PO DAILY 09/27/18 09/27/18 Theophylline 12 Hour [Martin-Dur] 200 mg PO Q12HR 09/27/18 09/27/18 Previous Rx's Medication Instructions Recorded Azithromycin [Zithromax] 500 mg PO DAILY #0 09/28/18 Promethaz-Cod 6.25-10 mg/5 ml 5 ml PO Q6H PRN #60 ml 09/28/18 [Phenergan with Codeine] predniSONE 10 mg PO DIRECTED #30 tab 09/28/18 Allergies Allergy/AdvReac Type Severity Reaction Status Date / Time Sulfa (Sulfonamide Allergy Rash/Hives Verified 12/02/18 13:39 Antibiotics) Review of Systems ROS Statement: Those systems with pertinent positive or pertinent negative responses have been documented in the HPI. ROS Other: All systems not noted in ROS Statement are negative. Past Medical History Past Medical History: Asthma, COPD, Hyperlipidemia, Hypertension, Osteoarthritis (OA), Pneumonia Additional Past Medical History / Comment(s): Pt/spouse state pt is not diabetic-placed on RX for weight loss only, arthritis in multiple joints, allergic asthma, bronchitis, sinus issues. History of Any Multi-Drug Resistant Organisms: None Reported Past Surgical History: Hernia Repair, Orthopedic Surgery Additional Past Surgical History / Comment(s): Inguinal hernia repair (pt cannot recall laterallity), umbilical hernia repair with mesh, colonoscopies, R great toe surgery, R index finger I&D. Past Anesthesia/Blood Transfusion Reactions: No Reported Reaction Past Psychological History: No Psychological Hx Reported Smoking Status: Former smoker Past Alcohol Use History: None Reported Past Drug Use History: None Reported - Past Family History Mother Family Medical History: No Reported History Additional Family Medical History / Comment(s): Mother in a house fire from smoke inhalation. Father Additional Family Medical History / Comment(s): Father in a house fire from smoke inhalation. General Exam - General Exam Comments Initial Comments: General: Well-developed well-nourished distress HEENT: Normocephalic/atraumatic, PERLL, pharynx erythema, swallowing well, EAC no erythema, no exudates, TM clear, no cervical lymph nodes Neck: Supple, nontender, trachea midline Chest/Lungs: Normal respirations, no signs of respiratory distress clear to auscultation bilaterally no wheezes, rales, rhonchi Cardiac: Regular rate and rhythm, normal S1-S2, no murmurs rubs or gallops Abdomen/GI: Soft nontender, bowel sounds equal or quadrant x4, no guarding, no rebound no CVA tenderness Musculoskeletal: 4 cm laceration on the lateral aspect of the right lower leg, no active bleeding, +2 dorsalis pedis and posterior tibialis bilaterally, no edema decided of injury. Skin: Warmth, no rashes or lesions, no cyanosis or diaphoresis Neurologic: AAO x 3, CN 2-12 intact, Psychiatric: Mood and affect normal, judgment normal Limitations: no limitations Course Vital Signs 12/02/18 13:39 Temperature 97.8 F Pulse Rate 91 Respiratory 18 Rate Blood Pressure 138/76 O2 Sat by Pulse 95 Oximetry Procedures - Laceration Laceration #1 Consent Obtained: verbal consent Indication: laceration Site: lower extremity (Lateral aspect of her right lower leg) Size (cm): 4 Description: linear Depth: simple, single layer Sedation/Analgesia: none Anesthetic Used: lidocaine 1% Anesthesia Technique: local infiltration Amount (mls): 10 Pre-repair: irrigated extensively Type of Sutures: nylon Size of Sutures: 4-0 Number of Sutures: 11 Technique: simple, interrupted Patient Tolerated Procedure: well Medical Decision Making - Medical Decision Making Patient is a 63-year-old male presenting to emergency Department with a laceration to his right leg. X-ray is negative for foreign bodies. The laceration site was repaired with 11 sutures. Patient tolerated the procedure well. Patient was given tetanus prophylaxis. Patient advised to return to emergency department and 10-14 days or sooner if symptoms worsen. Patient advised to follow proper wound care structures. Strict return parameters were thoroughly discussed with patient was understanding and agreeable. Case discussed with physician. Disposition Clinical Impression: Laceration Disposition: HOME SELF-CARE Condition: Stable Instructions (If sedation given, give patient instructions): Care For Your Stitches (DC), Laceration (DC) Additional Instructions: Please return to emergency department in 10-14 days for suture removal or sooner if symptoms worsen. Please follow proper wound care instructions. Is patient prescribed a controlled substance at d/c from ED?: No Referrals: Philippe Connell DO [Primary Care Provider] - 1-2 days Time of Disposition: 16:11
[2018-12-03] MEDS ORDERED: SODIUM CHLORIDE 0.9% IRRIG 1,000 ML BTL IRRIGATION ONE (00:43)
== END 2018-12-02 16:24 | disposition home or self-care (01) ==
LOC: EC 13:22
DX: S81.811A Laceration without foreign body, right lower leg, initial encounter (principal); J44.9 Chronic obstructive pulmonary disease, unspecified; E78.5 Hyperlipidemia, unspecified; I10 Essential (primary) hypertension; M19.90 Unspecified osteoarthritis, unspecified site; Z87.891 Personal history of nicotine dependence; Z88.2 Allergy status to sulfonamides; Z79.1 Long term (current) use of non-steroidal anti-inflammatories (NSAID); Z79.51 Long term (current) use of inhaled steroids; Z79.84 Long term (current) use of oral hypoglycemic drugs; Z79.899 Other long term (current) drug therapy; Z23 Encounter for immunization; W26.8XXA Contact with other sharp object(s), not elsewhere classified, initial encounter; Y93.H2 Activity, gardening and landscaping; Y92.007 Garden or yard of unspecified non-institutional (private) residence as the place of occurrence of the external cause
CPT/HCPCS: 73560; 90715; 99283; 12002; 90471; J2001

== ENCOUNTER 2019-06-12 20:46 | Emergency (ER) | payer MEDICARE, OTHER ==
[2019-06-12 21:05] VITALS: RESP 18; TEMP 98.2
--- NOTE | 2019-06-12 21:30 | ED ---
General Adult HPI - General Chief complaint: Eye Problems Stated complaint: Coughing-eye bruising Time Seen by Provider: 06/12/19 21:07 Source: patient, RN notes reviewed, old records reviewed Mode of arrival: ambulatory Limitations: no limitations - History of Present Illness Initial comments: 64-year-old male patient passed no history of asthma, COPD, hypertension and hyperlipidemia presents to ED for chief complaint of right eyelid hematoma. Patient reports they does have COPD and does have a mild cough at baseline. Patient reports that he coughed hard and then noticed that he had some bruising above his right eyelid. Patient reports that he was actually seen by his lens matcher Dr. Melendez today and was told that things are going well In r egards to his COPD. Denies any headache, denies any changes in vision, denies any eye pain, denies any use of blood thinners, denies any other complaints. Systemic: Pt denies fatigue, fever/chills, rash. Pt denies weakness, night sweats, weight loss. Neuro: Pt denies headache, visual disturbances, syncope or pre-syncope. HEENT: Pt denies ocular discharge or irritation, otalgia, rhinorrhea, phar yngitis or notable lymphadenopathy. Cardiopulmonary: Pt denies chest pain, SOB, heart palpitations, dyspnea on exertion. Abdominal/GI: Pt denies abdominal pain, n/v/d. : Pt denies dysuria, burning w/ urination, frequency/urgency. Denies new onset urinary or bowel incontinence. MSK: Pt denies myalgia, loss of strength or function in extremities. Neuro: Pt denies new onset weakness, paresthesias. - Related Data Home Medications Medication Instructions Recorded Confirmed Meloxicam 15 mg PO DAILY 12/16/13 09/27/18 metFORMIN HCL [Glucophage] 500 mg PO BID 12/16/13 09/27/18 Albuterol Inhaler [Ventolin Hfa 2 puff INHALATION RT-Q4H PRN 12/02/17 09/27/18 Inhaler] Albuterol Nebulized [Ventolin 2.5 mg INHALATION RT-Q4H 12/02/17 09/27/18 Nebulized] Atorvastatin [Lipitor] 10 mg PO HS 12/02/17 09/27/18 Budesonide [Pulmicort] 0.5 mg INHALATION RT-BID 12/02/17 09/27/18 Fluticasone Propionate [Flonase 1 spray EA NOSTRIL DAILY 12/02/17 09/27/18 Allergy Relief] Formoterol Fumarate [Perforomist] 20 mcg INHALATION RT-BID 12/02/17 09/27/18 Tiotropium [place] [Spiriva] 1 cap INHALATION RT-DAILY 12/02/17 09/27/18 Cetirizine HCl [Zyrtec] 10 mg PO DAILY 09/27/18 09/27/18 EPINEPHrine [Epipen 2-Shahzad] 0.3 mg IM ONCE PRN 09/27/18 09/27/18 Loratadine [Claritin] 10 mg PO DAILY PRN 09/27/18 09/27/18 Losartan Potassium 50 mg PO DAILY 09/27/18 09/27/18 Theophylline 12 Hour [Martin-Dur] 200 mg PO Q12HR 09/27/18 09/27/18 Previous Rx's Medication Instructions Recorded Azithromycin [Zithromax] 500 mg PO DAILY #0 09/28/18 Promethaz-Cod 6.25-10 mg/5 ml 5 ml PO Q6H PRN #60 ml 09/28/18 [Phenergan with Codeine] predniSONE 10 mg PO DIRECTED #30 tab 09/28/18 Allergies Allergy/AdvReac Type Severity Reaction Status Date / Time Sulfa (Sulfonamide Allergy Rash/Hives Verified 06/12/19 21:05 Antibiotics) Review of Systems ROS Statement: Those systems with pertinent positive or pertinent negative responses have been documented in the HPI. ROS Other: All systems not noted in ROS Statement are negative. Past Medical History Past Medical History: Asthma, COPD, Hyperlipidemia, Hypertension, Osteoarthritis (OA), Pneumonia Additional Past Medical History / Comment(s): Pt/spouse state pt is not diabetic-placed on RX for weight loss only, arthritis in multiple joints, allergic asthma, bronchitis, sinus issues. History of Any Multi-Drug Resistant Organisms: None Reported Past Surgical History: Hernia Repair, Orthopedic Surgery Additional Past Surgical History / Comment(s): Inguinal hernia repair (pt cannot recall laterallity), umbilical hernia repair with mesh, colonoscopies, R great toe surgery, R index finger I&D. Past Anesthesia/Blood Transfusion Reactions: No Reported Reaction Past Psychological History: No Psychological Hx Reported Smoking Status: Former smoker Past Alcohol Use History: None Reported Past Drug Use History: None Reported - Past Family History Mother Family Medical History: No Reported History Additional Family Medical History / Comment(s): Mother in a house fire from smoke inhalation. Father Additional Family Medical History / Comment(s): Father in a house fire from smoke inhalation. General Exam - General Exam Comments Initial Comments: Constitutional: NAD, AOX3, Pt has pleasant affect. HEENT: NC/AT, trachea midline, neck supple, no lymphadenopathy. Posterior ph arynx non erythematous, without exudates. External ears appear normal, without discharge. Mucous membranes moist. Eyes PERRLA, EOM intact. There is no scleral icterus. No pallor noted. Hematoma noted to right eyelid. No active bleeding. No scleral bleeding or defect noted. IOP average of 16 bilaterally. Cardiopulmonary: RRR, no murmurs, rubs or gallops, no JVD noted. Lungs CTAB in anterior and posterior thorne. No peripheral edema. Abdominal exam: Abdomen soft and non-distended. Abdomen non-tender to palpation in all 4 quadrants. Bowel sounds active in LLQ. No hepatosplenomegaly. No ecchym osis Neuro: CN II-XII grossly intact. No nuchal rigidity. No raccon eyes, no toribio sign, no hemotympanum. No cervical spinal tenderness. MSK: No posterior calf tenderness bilaterally, homans sign negative bilaterally. Posterior tibialis and radial pulse +2 bilaterally. Sensation intact in upper and lower extremities. Full active ROM in upper and lower extremities, 5/5 stregnth. Limitations: no limitations Course Vital Signs 06/12/19 06/12/19 06/12/19 21:02 22:04 22:29 Temperature 98.2 F 98.2 F 98.2 F Pulse Rate 97 95 95 Respiratory 18 18 18 Rate Blood Pressure 183/80 152/74 152/74 O2 Sat by Pulse 97 97 97 Oximetry Medical Decision Making - Medical Decision Making 64-year-old male patient passed no history of asthma, COPD, hypertension and hyperlipidemia presents to ED for chief complaint of right eyelid hematoma. Patient reports they does have COPD and does have a mild cough at baseline. Patient reports that he coughed hard and then noticed that he had some bruising above his right eyelid. Patient reports that he was actually seen by his lens matcher Dr. Melendez today and was told that things are going well In regards to his COPD. Denies any headache, denies any changes in vision, denies any eye pain, denies any use of blood thinners, denies any other complaints. Pt VSS, afebrile. Physical exam displayed: Eyes PERRLA, EOM intact. There is no scleral icterus. Hematoma noted to right eyelid. No active bleeding. No scleral bleeding or defect noted. IOP average of 16 bilaterally. Neurologic exam is within normal limits. NIH is 0. Patient Will be discharged, follow-up with primary care provider, return to ER if condition worsens. Case discussed with Dr. Singh. Disposition Clinical Impression: Hematoma of eyelid Disposition: HOME SELF-CARE Condition: Stable Instructions (If sedation given, give patient instructions): Hematoma (ED) Additional Instructions: Use icepack on hematoma. Return to ER if condition worsens in anyway. return to ED immediately if condition worsens in anyway. Is patient prescribed a controlled substance at d/c from ED?: No Referrals: Philippe Connell DO [Primary Care Provider] - 1-2 days
[2019-06-12 22:24] VITALS: BP 152/74; PULSE 95
== END 2019-06-12 22:29 | disposition home or self-care (01) ==
LOC: EC 20:46
DX: S00.11XA Contusion of right eyelid and periocular area, initial encounter (principal); J44.9 Chronic obstructive pulmonary disease, unspecified; I10 Essential (primary) hypertension; E78.5 Hyperlipidemia, unspecified; Z79.1 Long term (current) use of non-steroidal anti-inflammatories (NSAID); Z79.84 Long term (current) use of oral hypoglycemic drugs; Z79.51 Long term (current) use of inhaled steroids; Z79.899 Other long term (current) drug therapy; Z88.2 Allergy status to sulfonamides; X58.XXXA Exposure to other specified factors, initial encounter
CPT/HCPCS: 99283

== ENCOUNTER → 2020-01-17 | Outpatient (CLI) | payer MEDICARE ==
--- NOTE | 2020-01-17 11:32 | XR ---
EXAMINATION TYPE: XR cervical spine 4 views, XR thoracic spine 2 views, XR lumbar spine 3V DATE OF EXAM: 01/17/2020 COMPARISON: NONE HISTORY: 64-year-old male pain FINDINGS: Cervical spine: Atherosclerotic calcifications at both carotid bifurcations. No predental space widen ing or prevertebral soft tissue swelling. Degenerative changes at the C1 dens articulation. Alignment appears maintained. Mild to moderate endplate spondylosis suggested in the lower cervical spine with some facet and uncovertebral joint arthropathy. On the swimmer's view, alignment appears maintained. The lateral view shows obscuration of the C5-C6 and more caudal levels. Thoracic spine: 12 rib-bearing thoracic vertebral bodies. All pedicles are visualized. Mild degener ative disc disease mid and lower thoracic spine. Vertebral body heights are preserved and alignment i s maintained. Lumbar spine: 5 lumbar type vertebral bodies. Scattered mild to moderate degenerative disc disease w ith variable mild disc space narrowing, endplate spondylosis. Hypertrophic facet arthropathy mid to l ower lumbar spine. Vertebral body heights are preserved and alignment is maintained. Atherosclerotic calcifications throughout the abdominal aorta. There seems to be a mild aneurysm of 3.0 cm of the inf rarenal abdominal aorta. IMPRESSION: 1. Cervical spine: Degenerative changes at the C1 dens articulation. Mild to moderate spondylotic óscar nge lower cervical spine obscured heavily by the patient's shoulders. No malalignment seen on the swi mmer's view. 2. Thoracic spine: Mild degenerative disc disease. No vertebral compression collapse or malalignment. 3. Lumbar spine: Mild multilevel degenerative disc disease. Advanced hypertrophic facet arthropathy m id to lower lumbar spine. No vertebral compression collapse or malalignment. Possible 3 cm infrarenal AAA. A screening abdominal aortic ultrasound exam can be performed.
== END | disposition home or self-care (01) ==
LOC: RADXRMAIN 10:00
PROVIDERS: ATTEND Family Medicine
DX: M47.892 Other spondylosis, cervical region (principal); M51.34 Other intervertebral disc degeneration, thoracic region; M51.36 Other intervertebral disc degeneration, lumbar region; M47.896 Other spondylosis, lumbar region
CPT/HCPCS: 72040; 72070; 72100

== ENCOUNTER → 2020-02-19 | Outpatient (CLI) | payer MEDICARE ==
--- NOTE | 2020-02-19 09:30 | US ---
EXAMINATION TYPE: US duplex aorta DATE OF EXAM: 02/19/2020 COMPARISON: None. CLINICAL HISTORY: 65-year-old male controlled hypertension. I71.4 AAA. TECHNIQUE: Multiple sonographic images of the abdominal aorta are obtained. FINDINGS: Chaser Tar notes: US exam is technically limited by body habitus and overlying bowel gas. EXAM MEASUREMENTS: Abdominal Aorta: Proximal: 1.8cm A/P x 2.7cm TR Mid: 2.4cm A/P x 2.6cm TR Distal: 2.6cm A/P RLD x 2.3cm TR Bifurcation: 0.9cm TR Right KAROL; 1.1cm TR Left KAROL Aorta PW Doppler and color flow Doppler is present, and KAROL bilaterally are patent by Color Flow Dopp ler. Intimal wall thickening is noted distal Aorta. IMPRESSION: Mildly ectatic proximal abdominal aorta (2.7 cm) and distal abdominal aorta (2.6 cm). No sonographic evidence for AAA.
== END | disposition home or self-care (01) ==
LOC: RADUSWWP 06:53
PROVIDERS: ATTEND Family Medicine
DX: I77.811 Abdominal aortic ectasia (principal)
CPT/HCPCS: 93979

== ENCOUNTER 2021-11-13 18:54 | Emergency (ER) | payer MEDICARE ==
[2021-11-13 19:01] VITALS: BP 166/82; PULSE 99; RESP 20; TEMP 98
--- NOTE | 2021-11-13 20:05 | US ---
EXAMINATION TYPE: US venous doppler duplex LE BI DATE OF EXAM: 11/13/2021 7:57 PM COMPARISON: NONE CLINICAL HISTORY: rule out DVT, cramping. left leg calf cramping, difficult to walk, no h/o dvt SIDE PERFORMED: Bilateral TECHNIQUE: The lower extremity deep venous system is examined utilizing real time linear array sonog whitney with graded compression, doppler sonography and color-flow sonography. VESSELS IMAGED: Common Femoral Vein Deep Femoral Vein Greater Saphenous Vein * Femoral Vein Popliteal Vein Small Saphenous Vein * Proximal Calf Veins (* superficial vessels) Right Leg: Negative for DVT Left Leg: Negative for DVTmild fluid level seen within left calf at area of pain, probable strain or partial tear of structure within left calf IMPRESSION: No evidence for DVT at this time.
[2021-11-13] MEDS ORDERED: ACET/COD 300 MG/30 MG STARTER PACK 6 TAB BTL PO STA (21:39)
--- NOTE | 2021-11-13 21:40 | ED ---
Extremity Problem HPI - General Chief complaint: Extremity Problem,Nontraumatic Stated complaint: Left leg pain Time Seen by Provider: 11/13/21 21:26 Source: patient Mode of arrival: ambulatory Limitations: no limitations - History of Present Illness Initial comments: Patient is a 66-year-old male presenting with chief complaint of left leg cramping. Patient states that 4 days ago he had a slight cramp in his right leg, however the pain is subsided and now he has cramping in the lower portion of the left leg. This is accompanied by unilateral swelling of the left leg. Patient was advised by his PCP to report to the ER to rule out DVT. Patient admits to pain at rest. He denies any known injury. Denies numbness, tingling, weakness, loss of range of motion, redness, warmth, fever, chills, or break in the skin. - Related Data Home Medications Medication Instructions Recorded Confirmed Meloxicam 15 mg PO DAILY 12/16/13 09/27/18 metFORMIN HCL [Glucophage] 500 mg PO BID 12/16/13 09/27/18 Albuterol Inhaler [Ventolin Hfa 2 puff INHALATION RT-Q4H PRN 12/02/17 09/27/18 Inhaler] Albuterol Nebulized [Ventolin 2.5 mg INHALATION RT-Q4H 12/02/17 09/27/18 Nebulized] Atorvastatin [Lipitor] 10 mg PO HS 12/02/17 09/27/18 Budesonide [Pulmicort] 0.5 mg INHALATION RT-BID 12/02/17 09/27/18 Fluticasone Propionate [Flonase 1 spray EA NOSTRIL DAILY 12/02/17 09/27/18 Allergy Relief] Formoterol Fumarate [Perforomist] 20 mcg INHALATION RT-BID 12/02/17 09/27/18 Tiotropium [place] [Spiriva] 1 cap INHALATION RT-DAILY 12/02/17 09/27/18 Cetirizine HCl [Zyrtec] 10 mg PO DAILY 09/27/18 09/27/18 EPINEPHrine [Epipen 2-Shahzad] 0.3 mg IM ONCE PRN 09/27/18 09/27/18 Loratadine [Claritin] 10 mg PO DAILY PRN 09/27/18 09/27/18 Losartan Potassium 50 mg PO DAILY 09/27/18 09/27/18 Theophylline 12 Hour [Martin-Dur] 200 mg PO Q12HR 09/27/18 09/27/18 Previous Rx's Medication Instructions Recorded Azithromycin [Zithromax] 500 mg PO DAILY #0 09/28/18 Promethaz-Cod 6.25-10 mg/5 ml 5 ml PO Q6H PRN #60 ml 09/28/18 [Phenergan with Codeine] predniSONE 10 mg PO DIRECTED #30 tab 09/28/18 Allergies Allergy/AdvReac Type Severity Reaction Status Date / Time Sulfa (Sulfonamide Allergy Rash/Hives Verified 11/13/21 19:00 Antibiotics) Review of Systems ROS Statement: Those systems with pertinent positive or pertinent negative responses have been documented in the HPI. ROS Other: All systems not noted in ROS Statement are negative. Past Medical History Past Medical History: Asthma, COPD, Hyperlipidemia, Hypertension, Osteoarthritis (OA), Pneumonia Additional Past Medical History / Comment(s): Pt/spouse state pt is not diabetic-placed on RX for weight loss only, arthritis in multiple joints, allergic asthma, bronchitis, sinus issues. History of Any Multi-Drug Resistant Organisms: None Reported Past Surgical History: Hernia Repair, Orthopedic Surgery Additional Past Surgical History / Comment(s): Inguinal hernia repair (pt cannot recall laterallity), umbilical hernia repair with mesh, colonoscopies, R great toe surgery, R index finger I&D. Past Anesthesia/Blood Transfusion Reactions: No Reported Reaction Past Psychological History: No Psychological Hx Reported Past Alcohol Use History: None Reported Past Drug Use History: None Reported - Past Family History Mother Family Medical History: No Reported History Additional Family Medical History / Comment(s): Mother in a house fire from smoke inhalation. Father Additional Family Medical History / Comment(s): Father in a house fire from smoke inhalation. General Exam Limitations: no limitations General appearance: alert, in no apparent distress Head exam: Present: atraumatic, normocephalic, normal inspection Eye exam: Present: normal appearance, EOMI. Absent: scleral icterus, periorbital swelling Extremities exam: Present: full ROM, tenderness (To lower half of left lower leg), normal capillary refill, pedal edema (Left lower extremity), other (Distal pulses palpated). Absent: joint swelling Neurological exam: Present: alert, oriented X3, CN II-XII intact Psychiatric exam: Present: normal affect, normal mood Skin exam: Present: warm, dry, intact, normal color. Absent: rash Course Vital Signs 11/13/21 18:56 Temperature 98.0 F Pulse Rate 99 Respiratory 20 Rate Blood Pressure 166/82 O2 Sat by Pulse 95 Oximetry Medical Decision Making - Medical Decision Making Patient is a 66-year-old male presenting with chief complaint of left leg pain. Patient states pain is been going on for a few days, denies any trauma or injury. On examination left leg shows swelling, no redness or warmth. There is some tenderness to palpation of the lower half of the left lower leg. Patient admits to pain at rest and with ambulation. Doppler ultrasound shows no DVT, However there is mild fluid level seen within the left calf area of pain showing probable strain or partial tear of structure within the left calf. Distal pulses are palpated. Educated the patient on this finding, I instructed him to follow up with orthopedics and educated him on supportive treatment with Motrin, Tylenol, rest, ice, elevation. Follow-up with PCP. Report back to ER with any new or worsening symptoms. Discussed return parameters answered all questions. Patient conveyed verbal understanding and agreed to the plan. I discussed this case my attending Dr. Aranda. Disposition Clinical Impression: Strain of calf muscle Disposition: HOME SELF-CARE Condition: Good Instructions (If sedation given, give patient instructions): Muscle Strain (ED) Additional Instructions: Follow-up with PCP and orthopedics. Report back to ER with any new or worsening symptoms. Take Motrin and Tylenol as needed for pain control. Rest, ice, elevate the leg. Is patient prescribed a controlled substance at d/c from ED?: No Referrals: Philippe Connell DO [Primary Care Provider] - 1-2 days David iDop PAC [PHYSICIAN [employer] BI DEVELOPER] - 1-2 days Time of Disposition: 21:40
== END 2021-11-13 21:53 | disposition home or self-care (01) ==
LOC: EC 18:54
DX: S86.912A Strain of unspecified muscle(s) and tendon(s) at lower leg level, left leg, initial encounter (principal); J44.9 Chronic obstructive pulmonary disease, unspecified; E78.5 Hyperlipidemia, unspecified; I10 Essential (primary) hypertension; Z88.2 Allergy status to sulfonamides; X58.XXXA Exposure to other specified factors, initial encounter
CPT/HCPCS: 93970

== ENCOUNTER → 2023-09-27 | Outpatient (CLI) | payer OTHER ==
--- NOTE | 2023-09-27 10:03 | MR ---
EXAMINATION TYPE: MR thoracic spine wo/w con DATE OF EXAM: 09/27/2023 8:47 AM CLINICAL INDICATION:Male, 68 years old with history of M54.14 RADICULOPATHY, THORACIC REGION, Abdomin al Pain x 4 months COMPARISON: No priors. TECHNIQUE: Multi planar, multi sequence imaging was performed utilizing: T1-weighted, short-tau inver jessika recovery and T2-weighted of the thoracic spine. IV Contrast: 7.5ml cc Gadavist (none if empty) FINDINGS: Alignment: Alignment is within normal limits. Vertebral bodies have preserved heights. Spinal cord: Spinal cord is within normal limits for signal. Discs: Intervertebral disc signal is maintained. No evidence of significant spinal canal or neural fo raminal stenosis. There is no evidence of extradural defects or central spinal canal narrowing at any thoracic vertebral body level/facet joint arthropathy with mild multilevel neural foraminal stenosis . No abnormal postcontrast enhancement. Disc bulge at C7-T1 which narrows the ventral subarachnoid sp rayne. Osseous structures: High T1/T2 signal of vertebral bodies are present. Findings most compatible with Modic endplate changes. Mild 25% height loss of T9 T12 without evidence of retropulsion. Multilevel o steophyte formation and facet joint arthropathy. Scattered disc space narrowing. No abnormal bony edema on inversion recovery sequences. IMPRESSION: 1. T9 and T12 chronic appearing compression deformities. No evidence for abnormal postcontrast enhan cement. 2. Mild to moderate multilevel degeneration changes without significant spinal canal neural foramina l stenosis.
== END | disposition home or self-care (01) ==
LOC: RADMRIMAIN 07:08
PROVIDERS: ATTEND Family Medicine
DX: M51.14 Intervertebral disc disorders with radiculopathy, thoracic region (principal); M48.54XA Collapsed vertebra, not elsewhere classified, thoracic region, initial encounter for fracture
CPT/HCPCS: 72157; A9585

== ENCOUNTER → 2024-04-04 | Outpatient (CLI) | payer OTHER, MEDICARE ==
[2024-04-04 16:41] LABS: Basophils # (A) 0.04 X 10*3/uL (0.00-0.10); Basophils % (A) 0.5 %; Eosinophils # (A) 0.17 X 10*3/uL (0.04-0.35); Eosinophils % (A) 2.1 %; HGB 13.8 g/dL (13.0-17.0); Lymphocytes # (A) 0.76 X 10*3/uL (0.90-5.00); Lymphocytes % (A) 9.6 %; MCH 32.6 pg (27.0-32.0); MCHC 32.9 g/dL (32.0-37.0); MCV 99.3 FL (80.0-97.0); Mean Platelet Volume 10.3 FL (9.5-12.2); Monocytes # (A) 0.76 X 10*3/uL (0.20-1.00); Monocytes % (A) 9.6 %; NRBC Per 100 WBC 0 X 10*3/uL (0.00-0.01); Neutrophils # (A) 6.17 X 10*3/uL (1.80-7.70); Neutrophils % (A) 77.6 %; Platelet Count 257 X 10*3/uL (140-440); RBC 4.23 X 10*6/uL (4.40-5.60); RDW 14.1 % (11.5-14.5); WBC 7.95 X 10*3/uL (4.50-10.00)
[2024-04-04 16:50] LABS: Appearance,Urine Turbid (Clear); Bilirubin,Urine Small (Negative); Blood,Urine Negative (Negative); Color,Urine Dark Yellow (Yellow); Ketones,Urine Negative (Negative); Nitrite,Urine Negative (Negative); PH, Urine 5.5; Specific Gravity,Urine 1.026 (1.001-1.030)
[2024-04-04 17:22] LABS: Amorphous Sediment,Urine Present (None Seen); Bacteria,Urine None Seen (None Seen)
== END | disposition home or self-care (01) ==
LOC: LABWHC1 11:19
PROVIDERS: ATTEND Psychiatry & Neurology Neurology
DX: G20.A1 Parkinson's disease without dyskinesia, without mention of fluctuations (principal); Z79.899 Other long term (current) drug therapy
CPT/HCPCS: 36415; 81001; 82550; 83036; 84436; 84443; 84480; 85025; 87086

== ENCOUNTER → 2024-06-06 | Outpatient (CLI) | payer OTHER, MEDICARE | END | disposition home or self-care (01) | LOC: LABWHC1 14:56 | PROVIDERS: ATTEND Psychiatry & Neurology Neurology | DX: M79.675 Pain in left toe(s) (principal) | CPT/HCPCS: 36415; 84550 ==

== ENCOUNTER → 2024-09-08 | Outpatient (CLI) | payer MEDICARE, OTHER ==
--- NOTE | 2024-09-11 22:03 | P.PCN ---
Date of Procedure: 09/08/24 Operative Findings: Home sleep study report History This is a 69-year-old male patient with history of severe persistent bronchial asthma maintained on a combination of Trelegy Ellipta and Dupixent. Patient also has other comorbidities including chronic tremors, essential, compression fracture of the thoracic spine at the level of T9 and T12, and ongoing issues with daytime hypersomnia and sleepiness. The patient has snoring and sleep fragmentation and daytime sleepiness along with developmental class IV. His current body mass index is 31. Based on that, a home sleep study was ordered to screen the patient for obstructive sleep apnea Pertinent physical findings Weight is 188 with a BMI of 31.3. Height is 5 feet and 5 inches Technical description The [employer] system was used to complete his home sleep study. This is a type III home sleep study evaluation. The total recording duration was 7 hours and 48 minutes. The study started at 7:30 PM and ended at 3:01 AM. There was a total of 7 hours and 38 minutes of flow monitoring and 7 hours and 35 minutes of oxygen saturation monitoring Results The respiratory analysis showed a total of 42 obstructive apneas and 73 obstructive hypopneas. The resulting AHI was 15.1 and the patient's supine AHI was 19.5 Oxygen analysis The baseline pulse ox while awake was 96%. Average pulse ox during sleep was 93%. Lowest pulse ox was 85% and the patient spent approximately 1 minutes of the sleep time below pulse ox of 89% Cardiac summary Average heart rate was 76 with a minimum heart rate of 40 and a maximum heart rate of 160 Assessment Mild to moderate obstructive sleep apnea with an AHI of 15.1 No significant nocturnal oxygen desaturations Obesity with a BMI of 31 Severe persistent bronchial asthma Chronic hypersomnia and sleepiness with an Logan score of 19 Compression fracture of the T-spine, T9 and T12 Essential tremors Plan Offered CPAP therapy. The patient is excessively symptomatic and he may benefit from CPAP therapy. The patient has to come into the sleep center to undergo CPAP titration. Treatment of his underlying obstructive sleep apnea may also benefit his chronic bronchial asthma. Will follow.
== END ==
LOC: 3 N SLEEP 11:00
PROVIDERS: ATTEND Internal Medicine Critical Care Medicine
DX: G47.33 Obstructive sleep apnea (adult) (pediatric) (principal); M48.54XA Collapsed vertebra, not elsewhere classified, thoracic region, initial encounter for fracture; G25.0 Essential tremor; J45.50 Severe persistent asthma, uncomplicated; E66.9 Obesity, unspecified; Z68.31 Body mass index [BMI] 31.0-31.9, adult; Z88.2 Allergy status to sulfonamides; Z87.891 Personal history of nicotine dependence

== ENCOUNTER 2024-11-20 19:20 | Outpatient (CLI) | payer OTHER ==
--- NOTE | 2024-11-23 23:05 | P.PCN ---
Date of Procedure: 11/21/24 Operative Findings: CPAP titration report History This is a 69-year-old male patient with history of severe persistent bronchial asthma maintained on a combination of Trelegy Ellipta and Dupixent. Patient also has other comorbidities including chronic tremors, essential, compression fracture of the thoracic spine at the level of T9 and T12, and ongoing issues with daytime hypersomnia and sleepiness. The patient has snoring and sleep fragmentation and daytime sleepiness along with developmental class IV. His current body mass index is 31. Based on that, a home sleep study was ordered to screen the patient for obstructive sleep apnea. The home sleep study showed mild to moderate obstructive sleep apnea with an AHI of 15 without any significant nocturnal oxygen desaturation the patient is coming in to undergo CPAP titration. Pertinent physical findings Weight is 188 with a BMI of 31.3. Height is 5 feet and 5 inches Technical description The patient was studied using a standard complex polysomnography protocol that included recording of the Lead II EKG, Central, occipital and frontal EEG, right and left outer canthus EOG, submental EMG, right and left anterior tibialis EMG, respiratory airflow by thermocouple and or pressure/flow transducer, respiratory efforts by abdominal and thoracic PVDF belts, oxygen saturation by cable oximetry. Position by observation synchronized the PSG. Equipment used: [employer]. Stepwise CPAP titration was done to eliminate all obstructive respiratory events. Sleep architecture The total recording duration was 405.5 minutes. The total sleep time was 290 minutes. The overall sleep efficiency was 71.5%. The wake after sleep onset time was 46.5 minutes. The sleep architecture was characterized by 1.6% stage I, 54.5% stage II, 8.4% stage III and a total of 35.5% REM sleep. Latency to sleep onset was 69 minutes. The total arousal index was 15.3. Results CPAP therapy was initiated initially at a pressure of 5 cm of water pressure was gradually increased by Grammas of 1 cm of water solution CPAP pressure of 9 cm of water. This was a successful titration and the patient was studied in all sleep stages including REM sleep and the patient was able to assume supine and nonsupine body position. At a pressure of 9 cm of water, there was no obstructive respiratory events noted. There was also improvement in the patient's oxygenation without any significant desaturations. Cardiac summary The average heart rate was 61 with a minimum heart rate of 58 and a maximum heart rate of 66, rhythm was sinus Periodic limb movement activity There was a total of 100 periodic limb movement activity with an index of 20.7. There was additional 7 PLM with arousals with a PLM arousal index of 1.4 Arousal events A total of 74 arousals with an arousal index of 15.3. The respiratory arousal index was 0.4 Assessment Mild to moderate obstructive sleep apnea with an AHI of 15.1, the patient underwent a successful CPAP titration. No significant nocturnal oxygen desaturations Obesity with a BMI of 31 Abnormal sleep architecture with a REM rebound Mild to moderate periodic limb movement activity, not causing significant arousals Severe persistent bronchial asthma Chronic hypersomnia and sleepiness with an [place] score of 19 Compression fracture of the T-spine, T9 and T12 Essential tremors Plan Initiate CPAP therapy and the patient will be offered an APAP machine pressures of 5/9 cm of water and the patient will be offered a Simplus medium size fullface mask. Encouraged weight loss Optimize comorbidities Maintain regular sleep schedule Maintain good sleep hygiene measures See me back in the office in 30 to 90 days to assess clinical response and compliancy.
== END 2024-11-21 05:30 | disposition home or self-care (01) ==
LOC: 3 N SLEEP 19:20
PROVIDERS: ATTEND Internal Medicine Critical Care Medicine
DX: G47.33 Obstructive sleep apnea (adult) (pediatric) (principal); G47.61 Periodic limb movement disorder; J45.50 Severe persistent asthma, uncomplicated; M48.54XA Collapsed vertebra, not elsewhere classified, thoracic region, initial encounter for fracture; G25.0 Essential tremor; Z99.89 Dependence on other enabling machines and devices; Z88.1 Allergy status to other antibiotic agents; Z87.891 Personal history of nicotine dependence
CPT/HCPCS: 95811